=== PATIENT | male | born 1980 | race Caucasian/White ===

== ENCOUNTER 2024-07-18 20:03 | Inpatient (IN) | payer OTHER, SELFPAY ==
[2024-07-18 20:18] VITALS: BP 161/99; PULSE 85; RESP 16; TEMP 37.6; O2SAT 98; BMI 33.1
--- NOTE | 2024-07-18 20:42 | ED_ITS ---
HPI - General Adult General Chief complaint: Extremity Pain/Injury, Upper Stated complaint: Infected Rt hand Time Seen by Provider: 07/18/24 20:06 History of Present Illness HPI narrative: foreign language interpreter used: R hand 4th digit finger puncture by screw last sunday. this sunday swelling started and is getting worse. seen in clinic sunday and started on bactrim BID for 5d. states feels hot and chills today and tylenol at 1400. 44-year-old man presenting to the emergency depart with concern of hand infection. Nine days ago on the job was punctured by a screw in the palmar side PIP joint of the 4th finger. He says it did not go in very far and it was removed. Due to some redness and swelling that started 3 days ago was seen in clinic 2 days ago and looks to have initiated on 5 days of Bactrim. He does say that images were done at that time, x-ray images, which did not show any other injury. He has been taking Bactrim but the hand has swelled very quickly and gotten much worse. He is not measured a fever but has been feeling hot and chilled. Has taken acetaminophen. Has exquisite pain in his hand prefers to keep his finger flexed and does not want to move it. Finger also been draining Related Data Home Medications ?Medication ?Instructions ?Recorded ?Confirmed sulfamethoxazole 800 1 tab PO BID 07/19/24 07/19/24 mg-trimethoprim 160 mg tablet omeprazole 20 mg capsule,delayed 20 mg PO DAILY 07/23/24 07/23/24 release Previous Rx's ?Medication ?Instructions ?Recorded oxycodone 5 mg tablet 5 mg PO Q4-6H PRN Pain #20 tabs 07/20/24 sulfamethoxazole 800 1 tab PO Q12H 7 days #14 tabs 07/20/24 mg-trimethoprim 160 mg tablet (Bactrim DS) Allergies Allergy/AdvReac Type Severity Reaction Status Date / Time No Known Drug Allergies Allergy Verified 07/18/24 20:21 Review of Systems Status of ROS: Reports: 6 or more systems reviewed and unremarkable except as noted in History and below [facility] Social History What is your current living situation?: I presently have a place to live Problems where you live: no known problems In the past 12 months, utilities in danger of being shut off: no In the past 12 mos, have been you worried that your food would run out before you had money to buy more?: never true In the past 12 mos, the food you bought just didn't last and you didn't have money to buy more?: never true Highest level of school completed/degree received: high school graduate Smoking Status: Never smoker How often do you have a drink containing alcohol: 2-4 times a month How often do you have six or more drinks on one occasion: Less than monthly AUDIT-C Alcohol total score: 3 Non-prescribed substance use: denies use Caffeine: Yes How often does anyone, including family, friends and others, physically hurt you : never How often does anyone, including family, friends and others, insult or talk down to you: never How often does anyone, including family, friends and others, threaten you with harm: never How often does anyone, including family, friends and others, scream or curse at you: never Exam Narrative: Exam Narrative: Pleasant. Well-built. Favoring his right arm/hand. There is generalized swelling and erythema and calor over the dorsum of the right hand and a little bit on the 3rd and 5th finger but primarily the 4th finger is diffusely swollen with erythema and calor. Exquisitely tender. Began shaking in apparent pain when I attempt to flex and particular extension also causes a good deal of pain. On the palmar surface at the PIP there is an oval of purulent skin. Looks to have been draining a little bit. Const: Vital Signs, click to edit/add: Vital Signs - 24 hr 07/18/24 20:18 07/18/24 20:59 Temperature 99.7 F H 99.7 F H Pulse Rate [Pulse Oximeter] 85 Respiratory Rate 16 Blood Pressure [Ri ght Upper Arm] 161/99 H Pulse Oximetry 98 Oxygen Delivery Me thod Room Air Documenting provider has reviewed patient's vital signs: yes Course Vital Signs Vital signs: Initial Vital Signs Temperature 99.7 F H 07/18/24 20:18 Temperature Source Temporal Artery Scan 07/18/24 20:18 Pulse Rate 85 07/18/24 20:18 Respiratory Rate 16 07/18/24 20:18 Blood Pressure 161/99 H 07/18/24 20:18 Blood Pressure Mean 119 H 07/18/24 20:18 Blood Pressure Position Sitting 07/18/24 20:18 Pulse Oximetry 98 07/18/24 20:18 Oxygen Delivery Method Room Air 07/18/24 20:18 Vital Signs Temperature 99.7 F H 07/18/24 20:18 Pulse Rate 85 07/18/24 20:18 Respiratory Rate 16 07/18/24 20:18 Blood Pressure 161/99 H 07/18/24 20:18 Pulse Oximetry 98 07/18/24 20:18 Oxygen Delivery Method Room Air 07/18/24 20:18 Temperature 98.1 F 07/20/24 03:55 Pulse Rate 60 07/20/24 07:00 Respiratory Rate 16 07/20/24 07:00 Blood Pressure 132/77 07/20/24 07:00 Pulse Oximetry 99 07/20/24 07:00 Oxygen Delivery Method Room Air 07/20/24 07:00 Oxygen Flow Rate 4 07/19/24 09:15 Medications Administered Medications: Discontinued Medications Generic Name Dose Route Start Last Admin Trade Name Freq PRN Reason Stop Dose Admin Acetaminophen 650 mg 07/18/24 22:38 07/19/24 10:51 Acetaminophen 325 Mg Tablet PO 650 mg Q6H PRN Administration Fentanyl 50 mcg 07/19/24 08:52 07/19/24 09:05 Fentanyl 100 Mcg/2 Ml Inj IVP 50 mcg Q5M PRN Administration Hydromorphone HCl 0.5 mg 07/19/24 08:52 07/19/24 09:13 Hydromorphone 0.5 Mg/0.5 Ml Inj IVP 0.5 mg Q10M PRN Administration Hydromorphone HCl 0.5 mg 07/19/24 09:46 07/19/24 09:52 Hydromorphone 0.5 Mg/0.5 Ml Inj IVP 0.5 mg Q1H PRN Administration Pain Piperacillin Sod/Tazobactam 100 mls @ 200 mls/hr 07/18/24 21:28 07/18/24 23:35 Sod 4.5 gm/ Sodium Chloride IVPB 07/18/24 21:29 Infused ONCE ONE Infusion Piperacillin Sod/Tazobactam 100 mls @ 200 mls/hr 07/19/24 03:30 07/20/24 09:03 Sod 3.375 gm/ Sodium Chloride IVPB 200 mls/hr Q6H ROLANDO Administration Sodium Chloride 1,000 mls @ 125 mls/hr 07/18/24 22:38 07/19/24 20:50 0.9 % Sodium Chloride 1000 Ml IV Infused .Q8H ROLANDO Infusion Vancomycin/PEG/NADA/Lysine/Water 1.75 gm in 350 mls @ 200 mls/hr 07/19/24 00:00 07/19/24 02:04 Vancomycin 1.75 Gm/350 Ml IVPB 07/19/24 01:44 Infused ONCE ONE Infusion Protocol Vancomycin HCl 1,750 mg/ 517.5 mls @ 258.75 mls/hr 07/19/24 12:00 07/20/24 11:01 Sodium Chloride IVPB 258.75 mls/hr Q12H ROLANDO Administration Ibuprofen 800 mg 07/19/24 12:00 07/20/24 09:03 Ibuprofen 400 Mg Tablet PO 800 mg TIDWM ROLANDO Administration Ketorolac Tromethamine 30 mg 07/18/24 20:52 07/18/24 20:59 Ketorolac 30 Mg/Ml Inj IVP 07/18/24 20:53 30 mg ONCE ONE Administration Ondansetron HCl 4 mg 07/19/24 08:51 07/19/24 08:54 Ondansetron 2 Mg/Ml Inj IVP 4 mg ONCE PRN Administration Oxycodone HCl 2.5 - 10 mg 07/19/24 09:38 07/19/24 10:50 Oxycodone 5 Mg Tablet PO 5 mg Q2H PRN Administration Pain Oxycodone/Acetaminophen 2 tab 07/18/24 20:52 07/18/24 21:00 Oxycodone/Apap 5-325 Tablet PO 07/18/24 20:53 2 tab ONCE ONE Administration Sodium Chloride 5 ml 07/18/24 22:38 07/20/24 00:15 Sodium Chloride 0.9 % (Flush) 10 Ml Syringe IVF 5 ml .FLUSH PRN Administration Sodium Chloride 5 ml 07/19/24 09:00 07/20/24 09:04 Sodium Chloride 0.9 % (Flush) 10 Ml Syringe IVF 5 ml BID ROLANDO Administration Medical Decision Making MDM Narrative Medical decision making narrative: At this point would presume cellulitis with flexor tenosynovitis. Will collect some labs place IV. Monitor for other indication of sepsis. Blood culture. Contact Orthopedics. They are in agreement likely a purulent flexor tenosynovitis and recommendation for drainage in the OR in the morning. Initiating Zosyn and vanco. Has received IV fluids. Discussed with hospitalist who is accepting for admission. Lab Data Lab results reviewed: Yes I reviewed the patient's lab results Labs: Lab Results 07/18/24 Range/Units 21:00 WBC 7.72 (4.50-11.00) K/uL RBC 5.28 (4.30-5.90) m/uL Hgb 15.1 (13.5-17.5) gm/dL Hct 44.2 (37.0-53.0) % MCV 84 (80-100) fL MCH 29 (26-34) pg MCHC 34 (32-36) gm/dL RDW Coeff of [place] 12.1 (11.5-15.5) % Plt Count 237 (140-440) K/uL Neut % (Auto) 62.2 (42.0-72.0) % Lymph % (Auto) 25.3 (20-44) % [place] % (Auto) 11.3 H (0.0-11.0) % Eos % (Auto) 1.0 (0.0-7.0) % Baso % (Auto) 0.1 (0.0-3.0) % Neut # (Auto) 4.80 (1.7-7.0) K/uL Lymph # (Auto) 1.95 (0.90-2.90) K/uL [place] # (Auto) 0.90 (0.00-0.90) K/UL Eos # (Auto) 0.08 (0.00-0.50) K/uL Baso # (Auto) 0.01 (0.00-0.30) K/uL Abs Immat Gran (auto) 0.01 (0.00-0.30) K/uL Imm/Tot Granulo (auto) 0.1 % Sodium 138 (135-149) mmol/L Potassium 4.2 (3.6-5.1) mmol/L Chloride 106 (96-114) mmol/L Carbon Dioxide 23 (20-32) mmol/L Anion Gap 9 (7-15) mEq/L BUN 10 (5-24) mg/dL Creatinine 0.8 (0.5-1.5) mg/dL Estimated Creat Clear 125.50 Estimated GFR 112 ml/min Glucose 120 H (60-115) mg/dL Calcium 9.5 (8.4-10.6) mg/dL C-Reactive Protein 7.6 H (0.5-1.0) mg/dL Discharge Plan Discharge Clinical Impression: Suppurative tenosynovitis of flexor tendon, Cellulitis Patient Disposition: Admitted As Observation Condition: Stable Activity Detail: Keep splint clean and dry. No lifting right upper extremity greater than 2 lbs. For pain management: rest, ice, elevation, Tylenol, Ibuprofen and Oxycodone PRN. Patient will follow-up in 1 week for a wound check and again in 2 weeks for suture removal. Phone Orthopedics with any questions or concerns. Continue antibiotics - we will call if you need to change them after we receive results from your culture. Discharge Diet: Regular
[2024-07-18 20:59] VITALS: TEMP 37.6
[2024-07-18] MEDS: KETOROLAC 30 MG/ML inj IVP (20:59)
[2024-07-18] MEDS: OxyCODONE/APAP 5-325 TABLET 2 TAB PO (21:00)
--- OUTSIDE RECORDS SUMMARY | 2024-07-18 21:03 | XMS_ITS | Referral Summary ---
Author Organization [employer] Address [facility] [place] [address] Care Team Providers Care Post Secondary Professional Name Role Phone Clinic, [facility] Primary C are Provider Allergies No known active allergies Medications methylPREDNISol one (MEDROL DOSEPAK) 4 MG tablet Follow package instructions 21 tablet 0 5 Active HYDROcodone-fadi taminophen (NORCO) 5-325 MG per tablet Take 1-2 tablets by mouth every 4 hours as needed for moderate to severe pain 15 tablet 0 5 Active oxyCODONE-aceta minophen (PERCOCET) 5-325 MG per tablet Take 1-2 tablets by mouth every 6 hours as needed for moderate to severe pain or pain 20 tablet 0 5 Active gabapentin (NEURONTIN) 300 MG capsule Take 1 tablet (300 mg) every night for 1-3 days, then 1 tablet twice daily for 1-3 days, then 1 tablet three times daily 30 capsule 0 5 Active Social History Tobacco Use Types Packs/Day Years Used Date Smoking Tobacco: Every Day Cigarettes Alcohol Use Standard Drinks/Week Comments No 0 (1 standard drink = 0.6 oz pur e alcohol) Adolescent Education Answer Date Record ed Getting School Help Needed Not on file 09/21 Sex and Gender Information Value Date Recorded Sex Assigned at Not on file Legal Sex Male 1:33 PM MANAGER CL[employer]ICAL [employer]ARM[employer]Y Gender Identity Not on file Sexual Orientation Not on file Last Filed Vital Signs Vital Sign Reading Time Taken Comments Blood Pressure 138/80 09/21/2023 11:53 PM MANAGER CL[employer]ARM[employer]Y Pulse 73 09/21/2023 11:53 PM [employer]NAGER [employer]ARM[employer]Y Temperature 36.6 C (97.8 F) 09/21/2023 11:53 PM [employer]NAGER [employer]ARM[employer]Y Respiratory Rate 18 09/21/2023 11:53 PM MANAGER [employer]ICAL PHARM[employer]Y Oxygen Saturation 94% 09/21/2023 11:53 PM MANAGER [employer]ICAL PHARM[employer]Y Inhaled Oxygen Concentration - - Weight 108.9 kg (240 lb) 09/21/2023 8:01 PM MANAGER CL[employer]ICAL PHARMACY bed Height 175.3 cm (5' 9) 09/21/2023 8:01 PM MANAGER CL[employer] PHARM[employer]Y Body Mass Index 35.44 09/21/2023 8:01 PM [employer]NAGER [employer]ARM[employer] Plan of Treatment Not on file Procedures Procedure Name Priority Date/Time Associated Diagnosis Comments BASIC METABOLIC PANEL STAT 09/21/2023 8:18 PM MANAGER CLINICAL PHARMACY from Last 3 Months or Most Recently Relevant to Health Maintenance Results * (ABNORMAL) Basic metabolic panel (09/21/2023 8:18 PM MANAGER CLINICAL PHARMACY) [facility] Sodium 138 135 - 145 mmol/L 09/21/2023 8:52 PM MANAGER CLINICAL PHARMACY [facility] Comment:Reference intervals for this test were updated on 05/15/2023 to more accurately reflect our healthy population. There may be differences in the flagging of prior results with similar values performed with this method. Interpretation of those prior results can be made in the context of the updated reference intervals. Potassium 3.6 3.4 - 5.3 mmol/L 09/21/2023 8:52 PM [facility] Chloride 99 98 - 107 mmol/L 09/21/2023 8:52 PM [facility] Carbon Dioxide (CO2) 26 22 - 29 mmol/L 09/21/2023 8:52 PM [facility] Anion Gap 13 7 - 15 mmol/L 09/21/2023 8:52 PM [facility] Urea Nitrogen 14.3 6.0 - 20.0 mg/dL 09/21/2023 8:52 PM [facility] Creatinine 1.11 0.67 - 1.17 mg/dL 09/21/2023 8:52 PM [facility] GFR Estimate 84 >60 mL/min/1. 73m2 09/21/2023 8:52 PM MANAGER [facility] Calcium 8.3(L) 8.6 - 10.0 mg/dL 09/21/2023 8:52 PM MANAGER CL[facility]ARM[facility] Glucose 218(H) 70 - 99 mg/dL 09/21/2023 8:52 PM MANAGER [facility] Blood VENOUS LINE / Unknown Venipuncture / Unknown 09/21/2023 8:18 PM MANAGER [facility]Y 09/21/2023 8:30 PM [facility]NAGER [facility] Myles Alfred MD LAB - BLOOD ORDERABLES Final Result [facility] [address] Lab (1st floor, no room number) [place] [address], [facility] [phone] from Last 3 Months or Most Recently Relevant to Health Maintenance Insurance none (Work) [id number] [address] [id number] [facility] CHOICE [facility] CHO[facility] Care Teams Post Secondary Professional Relationship Specialty Start Date End Date Clinic, [address] [phone] PCP - General 09/22/23
--- OUTSIDE RECORDS SUMMARY | 2024-07-18 21:03 | XMS_ITS | Clinical Summary ---
Author Organization [employer] Address [address] [place], [place] [address]. [place] [address] Phone Care Team Providers Care Automobile Radiator Mechanic Name Role Phone Unavailable Primary Care Provider Unavailabl e Source Comments [employer] is fully rolled out on [employer]. Last update 01/22/09.[employer] Allergies No known active allergies Medications * Be aware that medications may not be up to date as of this document. Always verify current medications with patient. omeprazole (PRILOSEC) 20 mg oral capsuleIndication s:Gastroesophagea l reflux disease, unspecified whether esophagitis present TAKE 1 CAPSULE(20 MG) BY MOUTH DAILY. DO NOT CRUSH 30 capsule 4 01/17/2024 Active Active Problems No known active problems Immunizations Name Administration Dates Next Due COVID-19 MRNA Vaccine (Pfizer/COMIRNATApptio) suspens ion 09/01/2021 COVID-19 Vaccine Monovalent (MODERNA) 12 Years and Older 01/16/2021,12/14/2020 Influenza Vaccine 6 Months through Adult - Prefi lled 09/07/2021 Tetanus Toxoid, Reduced Diph theroid Toxoid Acellular Pertussis 09/19/2023 Family History Medical History Relation Name Comments No Known Problems Brother 1 hermes No Known Problems Brother 2 krystin No Known Problems Brother 3 portia No Known Problems Brother 4 arlette No Known Problems Brother 5 warren Alcohol abuse Father Warren Diabetes Father Warren had amputation of both legs. Kidney Disease Father Warren was on hemodi alysis No Known Problems Maternal Grandfather No Known Problems Maternal Grandmother No Known Problems Mother Lucy No Known Problems Paternal Grandfather No Known Problems Paternal Grandmother Kidney Disease Sister 1 Mirna monge developed this in 30's Hypertension Sister 2 fernando No Known Problems Sister 3 teodoro No Known Problems Sister 4 steve Relation Name Status Comments Brother 1 hermes Alive Brother 2 krystin Alive Brother 3 portia Alive Brother 4 arlette Alive Brother 5 warren Alive Father Warren etoh, renal rosa lure, diabetes Maternal Grandfather Maternal Grandmother Mother Lucy Alive prediabetes Paternal Grandfather Paternal Grandmother Sister 1 Mirna monge Alive on dialysis Sister 2 fernando Alive Sister 3 teodoro Alive Sister 4 steve Alive Social History Tobacco Use Types Packs/Day Years Used Date Smoking Tobacco: Former Cigarettes 2 8 Smokeless Tobacco: Never Comments:will occasionally s moke when drinking Alcohol Use Standard Drinks/Week Comments Yes 0 (1 standard drink = 0.6 oz pur e alcohol) 6 beers every other week PHQ-2 Answer Date Recorded PHQ-2 Subtotal 0 09/07/2021 Sex and Gender Information Value Date Recorded Sex Assigned at Not on file Legal Sex Male 10:38 PM MAILING CLERK Gender Identity Not on file Sexual Orientation Not on file 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 file Not on file Not on file Last Filed Vital Signs Vital Sign Reading Time Taken Comments Blood Pressure 140/93 09/19/2023 9:00 AM MAILING CLERK Pulse 67 09/19/2023 9:00 AM MAILING CLERK Temperature 36 C (96.8 F) 01/12/2022 9:02 AM CDT Respiratory Rate 18 01/12/2022 9:33 AM CDT Oxygen Saturation 96% 01/12/2022 9:33 AM CDT Inhaled Oxygen Concentration - - Weight 103 kg (227 lb) 09/19/2023 8:13 AM MAILING CLERK Height 178.5 cm (5' 10.28) 09/19/2023 8:[address] Body Mass Index 32.32 09/19/2023 8:13 AM MAILING CLERK Plan of Treatment Health Maintenance Due Date Last Done Comments Dental Oral Exam 1980 Dental Prophylaxis 1980 Dental X-Ray: Bitewings 1980 Periodontal Maintenance 1994 Imm: HepB (1 of 3 - 19+ 3-dose series) 1999 HEALTH MAINTENANCE PROTOCOL 09/07/2022 09/07/2021, 0 12/03/2017 Imm: COVID-19 ( season) 2024 09/01/2021, 01/16/2021, 12/14/2020 Imm: Flu (#1) 04/20/2024 09/07/2021 PREVENTATIVE VISIT 09/19/2024 09/19/2023, 0 09/07/2021, 12/03/2017, Additional history exists MEDICATION REFILL PROTOCOL 01/16/2025 01/17/2024, Lipid Screening 09/19/2028 09/19/2023, 08/20, 12/03/2017, Additional history exists Imm: Zoster (1 of 2) 2030 Imm: DTaP/Tdap (2 - Td or Tdap) 09/19/2033 09/19/2023 HIV Screening Completed 09/07/2021, 11/18, 02/24/2008 Imm: HPV Aged Out No longer eligi ble based on patient's age to complete this topic Imm: HepA Aged Out No longer eligi ble based on patient's age to complete this topic Imm: Hib Aged Out No longer eligi ble based on patient's age to complete this topic Imm: Meningitis Aged Out No longer el igible based on patient's age to complete this topic Imm: Pneumonia Peds or At-Risk less than 65 years Aged Out No longer bianca gible based on patient's age to complete this topic Procedures Procedure Name Priority Date/Time Associated Diagnosis Comments PANEL LIPID Routine 09/19/2023 9:22 AM MAILING CLERK Screening cholesterol level PC HIV-1 AG W/HIV-1 & HIV-2 AB Routine 09/07/2021 9:20 AM MAILING CLERK Routine history and physical examination of adult from Last 3 Months or Most Recently Relevant to Health Maintenance Results * (ABNORMAL) PANEL LIPID (09/19/2023 9:22 AM MAILING CLERK) Cholesterol 204(H) <=200 mg/dL [facility] Comment: Interpretive Data <200 Desirable 200-239 Borderline high >=240 High HDL 37(L) >=40 mg/dL [facility] Comment: Interpretive Data Normal > 40 Male > 50 Female Triglyceride 259(H) <=150 mg/dL [facility] Comment: Interpretive Data <150 Normal 150-199 Borderline high 200-499 High >=500 Very high Calc LDL 115(H) <=100 mg/dL [facility] Comment: Interpretive Data <100 Desirable 100-129 Above desirable 130-159 Borderline high 160-189 High >=190 Very high Non-HDL Cholesterol Calculated 167(H) <=130 mg/dL [facility] Comment: Interpretive Data <130 Desirable 130-159 Above desirable 160-189 Borderline high 190-219 High >=220 Very high Blood 09/19/2023 9:22 AM MAILING CLERK 09/19/2023 1:49 PM MAILING CLERK Narrative [facility] - 09/19/2023 2:07 PM MAILING CLERK Fasting: Yes us Mirna Rascon MD LABORATORY Final Result [facility] [address] [id number] * HIV COMBO (09/07/2021 9:20 AM MAILING CLERK) HIV Antigen-Antibody Nonreactive Nonreactive [facility] Comment:Performance characte ristics have not been established with this test on patients less than 2 years of age. Blood 09/07/2021 9:20 AM MAILING CLERK 09/07/2021 1:32 PM MAILING CLERK us Octavia Toledo APRN, CNP LABORATORY Fin al Result [facility] [address] [address] from Last 3 Months or Most Recently Relevant to Health Maintenance Insurance [facility]
--- OUTSIDE RECORDS SUMMARY | 2024-07-18 21:03 | XMS_ITS | Referral Summary ---
Author Organization [facility] Address [address] [place], [place] [address]. [place] [address] Phone Care Team Providers Care Potato Bucker Name Role Phone Unavailable Primary Care Provider Unavailabl e Source Comments [employer] is fully rolled out on [employer]. 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 Not on file Not on file Last Filed Vital Signs Vital Sign Reading Time Taken Comments Blood Pressure 140/93 09/19/2023 9:00 AM NETWORK PRICING CONSULTANT Pulse 67 09/19/2023 9:00 AM NETWORK PRICING CONSULTANT Temperature 36 C (96.8 F) 01/12/2022 9:02 AM CDT Respiratory Rate 18 01/12/2022 9:33 AM CDT Oxygen Saturation 96% 01/12/2022 9:33 AM CDT Inhaled Oxygen Concentration - - Weight 103 kg (227 lb) 09/19/2023 8:13 AM NETWORK PRICING CONSULTANT Height 178.5 cm (5' 10.28) 09/19/2023 8:[address] Body Mass Index 32.32 09/19/2023 8:13 AM NETWORK PRICING CONSULTANT Plan of Treatment Not on file Procedures Procedure Name Priority Date/Time Associated Diagnosis Comments PANEL LIPID Routine 09/19/2023 9:22 AM NETWORK PRICING CONSULTANT Screening cholesterol level PC HIV-1 AG W/HIV-1 & HIV-2 AB Routine 09/07/2021 9:20 AM NETWORK PRICING CONSULTANT Routine history and physical examination of adult from Last 3 Months or Most Recently Relevant to Health Maintenance Results * (ABNORMAL) PANEL LIPID (09/19/2023 9:22 AM NETWORK PRICING CONSULTANT) Cholesterol 204(H) <=200 mg/dL [facility] Comment: Interpretive Data <200 Desirable 200-239 Borderline high >=240 High HDL 37(L) >=40 mg/dL [facility] Comment: Interpretive Data Normal > 40 Male > 50 Female Triglyceride 259(H) <=150 mg/dL [facility] Comment: Interpretive Data <150 Normal 150-199 Borderline high 200-499 High >=500 Very high Calc LDL 115(H) <=100 mg/dL [facility] Comment: Interpretive Data <100 Desirable 100-129 Above desirable 130-159 Borderline high 160-189 High >=190 Very high Non-HDL Cholesterol Calculated 167(H) <=130 mg/dL [facility] Comment: Interpretive Data <130 Desirable 130-159 Above desirable 160-189 Borderline high 190-219 High >=220 Very high Blood 09/19/2023 9:22 AM NETWORK PRICING CONSULTANT 09/19/2023 1:49 PM NETWORK PRICING CONSULTANT Narrative [facility] - 09/19/2023 2:07 PM NETWORK PRICING CONSULTANT Fasting: Yes us Mirna Rascon MD LABORATORY Final Result [facility] [address] [address] * HIV COMBO (09/07/2021 9:20 AM NETWORK PRICING CONSULTANT) HIV Antigen-Antibody Nonreactive Nonreactive [facility] Comment:Performance characte ristics have not been established with this test on patients less than 2 years of age. Blood 09/07/2021 9:20 AM NETWORK PRICING CONSULTANT 09/07/2021 1:32 PM NETWORK PRICING CONSULTANT us Octavia Toledo APRN, PICKER MACHINE OPERATOR LABORATORY Fin al Result Performing Organization Address City/[facility]/ZIP Co de Phone Number [facility] [address] [address] from Last 3 Months or Most Recently Relevant to Health Maintenance Insurance [facility]
--- OUTSIDE RECORDS SUMMARY | 2024-07-18 21:03 | XMS_ITS | Clinical Summary ---
Author Organization [place] Address [facility] [place] [address] Care Team Providers Care Board Machine Set Up Operator Name Role Phone Clinic, [facility] Primary C are Provider Allergies No known [...] on file Legal Sex Male 1:33 PM ANODIZING LINE OPERATOR Gender Identity Not on file Sexual Orientation Not on file Last Filed Vital Signs Vital Sign Reading Time Taken Comments Blood Pressure 138/80 09/21/2023 11:53 PM ANODIZING LINE OPERATOR Pulse 73 09/21/2023 11:53 PM ANODIZING LINE OPERATOR Temperature 36.6 C (97.8 F) 09/21/2023 11:53 PM ANODIZING LINE OPERATOR Respiratory Rate 18 09/21/2023 11:53 PM ANODIZING LINE OPERATOR Oxygen Saturation 94% 09/21/2023 11:53 PM ANODIZING LINE OPERATOR Inhaled Oxygen Concentration - - Weight 108.9 kg (240 lb) 09/21/2023 8:01 PM ANODIZING LINE OPERATOR bed Height 175.3 cm (5' 9) 09/21/2023 8:01 PM ANODIZING LINE OPERATOR Body Mass Index 35.44 09/21/2023 8:01 PM ANODIZING LINE OPERATOR Plan of Treatment Health Maintenance Due Date Last Done Comments ADVANCE CARE PLANNING 1980 ANNUAL REVIEW OF HM ORDERS 1980 YEARLY PREVENTIVE VISIT 1980 Pneumococcal Vaccine: Pediatrics (0 to 5 Years) and At-Risk Patients (6 to 64 Years) (1 of 2 - PCV) 1986 HIV SCREENING 1995 HEPATITIS C SCREENING 1998 HEPATITIS B IMMUNIZATION (1 of 3 - 19+ 3-dose series) 1999 LIPID 2020 PHQ-2 (once per calendar year) 2023 COVID-19 Vaccine ( - 2023-2 5 season) 2024 09/01/2021, 01/16/2021, 12/14/2020 INFLUENZA VACCINE (#1) 2024 09/07/2021 GLUCOSE 09/21/2026 09/21/2023 DTAP/TDAP/TD IMMUNIZATION (2 - Td or Tdap) 09/19/2033 09/19/2023 RSV VACCINE (1 - 1-dose 75+ series) 2055 HPV IMMUNIZATION Aged Out No longer e ligible based on patient's age to complete this topic MENINGITIS IMMUNIZATION Aged Out No l onger eligible based on patient's age to complete this topic RSV MONOCLONAL ANTIBODY Aged Out No l onger eligible based on patient's age to complete this topic Procedures Procedure Name Priority Date/Time Associated Diagnosis Comments BASIC METABOLIC PANEL STAT 09/21/2023 8:18 PM ANODIZING LINE OPERATOR from Last 3 Months or Most Recently Relevant to Health Maintenance Results * (ABNORMAL) Basic metabolic panel (09/21/2023 8:18 PM ANODIZING LINE OPERATOR) Sodium 138 135 - 145 mmol/L 09/21/2023 8:52 PM [facility] Comment:Reference intervals for this test were updated on 05/15/2023 to more accurately reflect our healthy population. There may be differences in the flagging of prior results with similar values performed with this method. Interpretation of those prior results can be made in the context of the updated reference intervals. Potassium 3.6 3.4 - 5.3 mmol/L 09/21/2023 8:52 PM ANODIZING LINE OPERATOR LABORATORY Chloride 99 98 - 107 mmol/L 09/21/2023 8:52 PM ANODIZING LINE OPERATOR LABORATORY Carbon Dioxide (CO2) 26 22 - 29 mmol/L 09/21/2023 8:52 PM [facility] Anion Gap 13 7 - 15 mmol/L 09/21/2023 8:52 PM ANODIZING LINE OPERATOR LABORATORY Urea Nitrogen 14.3 6.0 - 20.0 mg/dL 09/21/2023 8:52 PM ANODIZING LINE OPERATOR LABORATORY Creatinine 1.11 0.67 - 1.17 mg/dL 09/21/2023 8:52 PM ANODIZING LINE OPERATOR LABORATORY GFR Estimate 84 >60 mL/min/1. 73m2 09/21/2023 8:52 PM ANODIZING LINE OPERATOR LABORATORY Calcium 8.3(L) 8.6 - 10.0 mg/dL 09/21/2023 8:52 PM ANODIZING LINE OPERATOR LABORATORY Glucose 218(H) 70 - 99 mg/dL 09/21/2023 8:52 PM [facility] Blood VENOUS LINE / Unknown Venipuncture / Unknown 09/21/2023 8:18 PM ANODIZING LINE OPERATOR 09/21/2023 8:30 PM ANODIZING LINE OPERATOR us Myles Alfred MD LAB - BLOOD ORDERABLES Final Result LABORATORY [facility] Lab [address] [facility] Lab (1st floor, no room number) [place] [address], [facility] [phone] from Last 3 Months or Most Recently Relevant to Health Maintenance Insurance [facility] Care Teams Board Machine Set Up Operator Relationship Specialty Start Date End Date [facility], [address] [address] PCP - General 09/22/23
[2024-07-18 21:05] LABS: Basophils Absolute Auto 0.01 K/uL (0.00-0.30); Basophils Percent Auto 0.1 % (0.0-3.0); Eosinophils Absolute Auto 0.08 K/uL (0.00-0.50); Hematocrit 44.2 % (37.0-53.0); Hemoglobin* 15.1 gm/dL (13.5-17.5); Immature Granulocytes Abs Auto 0.01 K/uL (0.00-0.30); Immature Granulocytes Pct Auto 0.1 %; Lymphocytes Absolute Auto 1.95 K/uL (0.90-2.90); Lymphocytes Percent Auto 25.3 % (20-44); Mean Corpuscular HGB Conc 34 gm/dL (32-36); Mean Corpuscular Hemoglobin 29 pg (26-34); Mean Corpuscular Volume 84 fL (80-100); Monocytes Percent Auto 11.3 % (0.0-11.0); Neutrophils Percent Auto 62.2 % (42.0-72.0); Platelet Count* 237 K/uL (140-440); RDW Coefficient of Variation % 12.1 % (11.5-15.5); Red Blood Count 5.28 m/uL (4.30-5.90); White Blood Count* 7.72 K/uL (4.50-11.00)
[2024-07-18 21:16] LABS: Chloride* 106 mmol/L (96-114)
[2024-07-18 21:17] LABS: Potassium* 4.2 mmol/L (3.6-5.1); Sodium* 138 mmol/L (135-149)
[2024-07-18 21:18] LABS: Slide Review Reflex No
[2024-07-18 21:19] LABS: Creatinine* 0.8 mg/dL (0.5-1.5); Estimated Glomerular Filt Rate 112 ml/min
[2024-07-18 21:20] LABS: Anion Gap 9 mEq/L (7-15); Blood Urea Nitrogen* 10 mg/dL (5-24); Carbon Dioxide* 23 mmol/L (20-32)
[2024-07-18 21:21] LABS: Calcium* 9.5 mg/dL (8.4-10.6); Glucose* 120 mg/dL (60-115)
[2024-07-18 21:23] LABS: C Reactive Protein* 7.6 mg/dL (0.5-1.0)
[2024-07-18] MEDS: PIPERACILLIN/TAZOBACTAM 4.5 GM in 0.9 % SODIUM CHLORIDE Mini-bag 100 ML IVPB (21:37)
--- OUTSIDE RECORDS SUMMARY | 2024-07-18 22:22 | XMS_ITS | Referral Summary ---
Author Organization [place] Address [facility] [place] [address] Care Team Providers Care Eyewear Manufacturing Supervisor Name Role Phone Clinic, [facility] Primary C are Provider Allergies [...] on file Legal Sex Male 1:33 PM BRASS MOLDER HELPER Gender Identity Not on file Sexual Orientation Not on file Last Filed Vital Signs Vital Sign Reading Time Taken Comments Blood Pressure 138/80 09/21/2023 11:53 PM BRASS MOLDER HELPER Pulse 73 09/21/2023 11:53 PM BRASS MOLDER HELPER Temperature 36.6 C (97.8 F) 09/21/2023 11:53 PM BRASS MOLDER HELPER Respiratory Rate 18 09/21/2023 11:53 PM BRASS MOLDER HELPER Oxygen Saturation 94% 09/21/2023 11:53 PM BRASS MOLDER HELPER Inhaled Oxygen Concentration - - Weight 108.9 kg (240 lb) 09/21/2023 8:01 PM BRASS MOLDER HELPER bed Height 175.3 cm (5' 9) 09/21/2023 8:01 PM BRASS MOLDER HELPER Body Mass Index 35.44 09/21/2023 8:01 PM BRASS MOLDER HELPER Plan of Treatment Not on file Procedures Procedure Name Priority Date/Time Associated Diagnosis Comments BASIC METABOLIC PANEL STAT 09/21/2023 8:18 PM BRASS MOLDER HELPER from Last 3 Months or Most Recently Relevant to Health Maintenance Results * (ABNORMAL) Basic metabolic panel (09/21/2023 8:18 PM BRASS MOLDER HELPER) [facility] Sodium 138 135 - 145 mmol/L 09/21/2023 8:52 PM BRASS MOLDER HELPER [facility] Comment:Reference intervals for this test were updated on 05/15/2023 to more accurately reflect our healthy population. There may be differences in the flagging of prior results with similar values performed with this method. Interpretation of those prior results can be made in the context of the updated reference intervals. Potassium 3.6 3.4 - 5.3 mmol/L 09/21/2023 8:52 PM [facility] Chloride 99 98 - 107 mmol/L 09/21/2023 8:52 PM [facility] Carbon Dioxide (CO2) 26 22 - 29 mmol/L 09/21/2023 8:52 PM [facility] Anion Gap 13 7 - 15 mmol/L 09/21/2023 8:52 PM [facility] Urea Nitrogen 14.3 6.0 - 20.0 mg/dL 09/21/2023 8:52 PM [facility] Creatinine 1.11 0.67 - 1.17 mg/dL 09/21/2023 8:52 PM [facility] GFR Estimate 84 >60 mL/min/1. 73m2 09/21/2023 8:52 PM BRASS MOLDER HELPER RH LABORATORY Calcium 8.3(L) 8.6 - 10.0 mg/dL 09/21/2023 8:52 PM BRASS MOLDER HELPER [facility] Glucose 218(H) 70 - 99 mg/dL 09/21/2023 8:52 PM BRASS MOLDER HELPER [facility]AT[facility] Blood VENOUS LINE / Unknown Venipuncture / Unknown 09/21/2023 8:18 PM BRASS MOLDER HELPER 09/21/2023 8:30 PM BRASS MOLDER HELPER Myles Alfred MD LAB - BLOOD ORDERABLES Final Result [facility] LABORATORY [facility] Lab [address] Lab (1st floor, no room number) [place] [address], [facility] [place] [phone] from Last 3 Months or Most Recently Relevant to Health Maintenance Insurance none (Work) [id number] [id number] [facility] Care Teams Eyewear Manufacturing Supervisor Relationship Specialty Start Date End Date Clinic, [address] [phone] PCP - General 09/22/23
--- OUTSIDE RECORDS SUMMARY | 2024-07-18 22:22 | XMS_ITS | Clinical Summary ---
Author Organization [facility] Address [address] [place], [place] [address]. [place] [address] Phone Care Team Providers Care Packaging Tech Name Role Phone Unavailable Primary Care Provider Unavailabl e Source Comments [employer] is fully rolled out on [employer]. 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 Not on file Not on file Last Filed Vital Signs Vital Sign Reading Time Taken Comments Blood Pressure 140/93 09/19/2023 9:00 AM DIRECTOR TELEVISION NEWS Pulse 67 09/19/2023 9:00 AM DIRECTOR TELEVISION NEWS Temperature 36 C (96.8 F) 01/12/2022 9:02 AM CDT Respiratory Rate 18 01/12/2022 9:33 AM CDT Oxygen Saturation 96% 01/12/2022 9:33 AM CDT Inhaled Oxygen Concentration - - Weight 103 kg (227 lb) 09/19/2023 8:13 AM DIRECTOR TELEVISION NEWS Height 178.5 cm (5' 10.28) 09/19/2023 8:[address] Body Mass Index 32.32 09/19/2023 8:13 AM DIRECTOR TELEVISION NEWS Plan of Treatment Health Maintenance Due Date [...] Comments PANEL LIPID Routine 09/19/2023 9:22 AM DIRECTOR TELEVISION NEWS Screening cholesterol level PC HIV-1 AG W/HIV-1 & HIV-2 AB Routine 09/07/2021 9:20 AM DIRECTOR TELEVISION NEWS Routine history and physical examination of adult from Last 3 Months or Most Recently Relevant to Health Maintenance Results * (ABNORMAL) PANEL LIPID (09/19/2023 9:22 AM DIRECTOR TELEVISION NEWS) Cholesterol 204(H) <=200 mg/dL [facility] Comment: Interpretive Data <200 Desirable 200-239 Borderline high >=240 High HDL 37(L) >=40 mg/dL [facility] Comment: Interpretive Data Normal > 40 Male > 50 Female Triglyceride 259(H) <=150 mg/dL [facility] Comment: Interpretive Data <150 Normal 150-199 Borderline high 200-499 High >=500 Very high Calc LDL 115(H) <=100 mg/dL [facility] Comment: Interpretive Data <100 Desirable 100-129 Above desirable 130-159 Borderline high 160-189 High >=190 Very high Non-HDL Cholesterol Calculated 167(H) <=130 mg/dL [facility] Comment: Interpretive Data <130 Desirable 130-159 Above desirable 160-189 Borderline high 190-219 High >=220 Very high Blood 09/19/2023 9:22 AM DIRECTOR TELEVISION NEWS 09/19/2023 1:49 PM DIRECTOR TELEVISION NEWS Narrative [facility] - 09/19/2023 2:07 PM DIRECTOR TELEVISION NEWS Fasting: Yes us Mirna Rascon MD LABORATORY Final Result [facility] [address] [address] * HIV COMBO (09/07/2021 9:20 AM DIRECTOR TELEVISION NEWS) HIV Antigen-Antibody Nonreactive Nonreactive [facility] Comment:Performance characte ristics have not been established with this test on patients less than 2 years of age. Blood 09/07/2021 9:20 AM DIRECTOR TELEVISION NEWS 09/07/2021 1:32 PM DIRECTOR TELEVISION NEWS us Octavia Toledo APRN, CNP LABORATORY Fin al Result [facility] [address] [address] from Last 3 Months or Most Recently Relevant to Health Maintenance Insurance [facility]
--- OUTSIDE RECORDS SUMMARY | 2024-07-18 22:22 | XMS_ITS | Referral Summary ---
Author Organization [facility] Address [address] [place], [place] [address]. [place] [address] Phone Care Team Providers Care Wellness Program Coordinator Name Role Phone Unavailable Primary Care Provider Unavailabl e Source Comments [employer] is fully rolled out on [employer]. 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 Not on file Not on file Last Filed Vital Signs Vital Sign Reading Time Taken Comments Blood Pressure 140/93 09/19/2023 9:00 AM PRODUCTION HONING MACHINE OPERATOR Pulse 67 09/19/2023 9:00 AM PRODUCTION HONING MACHINE OPERATOR Temperature 36 C (96.8 F) 01/12/2022 9:02 AM CDT Respiratory Rate 18 01/12/2022 9:33 AM CDT Oxygen Saturation 96% 01/12/2022 9:33 AM CDT Inhaled Oxygen Concentration - - Weight 103 kg (227 lb) 09/19/2023 8:13 AM PRODUCTION HONING MACHINE OPERATOR Height 178.5 cm (5' 10.28) 09/19/2023 8:[address] Body Mass Index 32.32 09/19/2023 8:13 AM PRODUCTION HONING MACHINE OPERATOR Plan of Treatment Not on file Procedures Procedure Name Priority Date/Time Associated Diagnosis Comments PANEL LIPID Routine 09/19/2023 9:22 AM PRODUCTION HONING MACHINE OPERATOR Screening cholesterol level PC HIV-1 AG W/HIV-1 & HIV-2 AB Routine 09/07/2021 9:20 AM PRODUCTION HONING MACHINE OPERATOR Routine history and physical examination of adult from Last 3 Months or Most Recently Relevant to Health Maintenance Results * (ABNORMAL) PANEL LIPID (09/19/2023 9:22 AM PRODUCTION HONING MACHINE OPERATOR) Cholesterol 204(H) <=200 mg/dL [facility] Comment: Interpretive Data <200 Desirable 200-239 Borderline high >=240 High HDL 37(L) >=40 mg/dL [facility] Comment: Interpretive Data Normal > 40 Male > 50 Female Triglyceride 259(H) <=150 mg/dL [facility] Comment: Interpretive Data <150 Normal 150-199 Borderline high 200-499 High >=500 Very high Calc LDL 115(H) <=100 mg/dL [facility] Comment: Interpretive Data <100 Desirable 100-129 Above desirable 130-159 Borderline high 160-189 High >=190 Very high Non-HDL Cholesterol Calculated 167(H) <=130 mg/dL [facility] Comment: Interpretive Data <130 Desirable 130-159 Above desirable 160-189 Borderline high 190-219 High >=220 Very high Blood 09/19/2023 9:22 AM PRODUCTION HONING MACHINE OPERATOR 09/19/2023 1:49 PM PRODUCTION HONING MACHINE OPERATOR Narrative [facility] - 09/19/2023 2:07 PM PRODUCTION HONING MACHINE OPERATOR Fasting: Yes us Mirna Rascon MD LABORATORY Final Result [facility] [address] [address] * HIV COMBO (09/07/2021 9:20 AM PRODUCTION HONING MACHINE OPERATOR) HIV Antigen-Antibody Nonreactive Nonreactive [facility] Comment:Performance characte ristics have not been established with this test on patients less than 2 years of age. Blood 09/07/2021 9:20 AM PRODUCTION HONING MACHINE OPERATOR 09/07/2021 1:32 PM PRODUCTION HONING MACHINE OPERATOR us Octavia Toledo APRN, PATTERN CUTTER LABORATORY Fin al Result Performing Organization Address City/[facility]/ZIP Co de Phone Number [facility] [address] [address] from Last 3 Months or Most Recently Relevant to Health Maintenance Insurance [facility]
--- OUTSIDE RECORDS SUMMARY | 2024-07-18 22:22 | XMS_ITS | Clinical Summary ---
Author Organization [place] Address [facility] [place] [address] Care Team Providers Care Off Premise Service Representative Name Role Phone Clinic, [facility] Primary C are Provider Allergies No known [...] on file Legal Sex Male 1:33 PM CHIEF CONTROLLER CENTER Gender Identity Not on file Sexual Orientation Not on file Last Filed Vital Signs Vital Sign Reading Time Taken Comments Blood Pressure 138/80 09/21/2023 11:53 PM CHIEF CONTROLLER CENTER Pulse 73 09/21/2023 11:53 PM CHIEF CONTROLLER CENTER Temperature 36.6 C (97.8 F) 09/21/2023 11:53 PM CHIEF CONTROLLER CENTER Respiratory Rate 18 09/21/2023 11:53 PM CHIEF CONTROLLER CENTER Oxygen Saturation 94% 09/21/2023 11:53 PM CHIEF CONTROLLER CENTER Inhaled Oxygen Concentration - - Weight 108.9 kg (240 lb) 09/21/2023 8:01 PM CHIEF CONTROLLER CENTER bed Height 175.3 cm (5' 9) 09/21/2023 8:01 PM CHIEF CONTROLLER CENTER Body Mass Index 35.44 09/21/2023 8:01 PM CHIEF CONTROLLER CENTER Plan of Treatment Health Maintenance Due Date [...] BASIC METABOLIC PANEL STAT 09/21/2023 8:18 PM CHIEF CONTROLLER CENTER from Last 3 Months or Most Recently Relevant to Health Maintenance Results * (ABNORMAL) Basic metabolic panel (09/21/2023 8:18 PM CHIEF CONTROLLER CENTER) Sodium 138 135 - 145 mmol/L 09/21/2023 8:[address] [facility] Comment:Reference intervals for this test were updated on 05/15/2023 to more accurately reflect our healthy population. There may be differences in the flagging of prior results with similar values performed with this method. Interpretation of those prior results can be made in the context of the updated reference intervals. Potassium 3.6 3.4 - 5.3 mmol/L 09/21/2023 8:52 PM [facility] Chloride 99 98 - 107 mmol/L 09/21/2023 8:52 PM [facility] Carbon Dioxide (CO2) 26 22 - 29 mmol/L 09/21/2023 8:[address] [facility] Anion Gap 13 7 - 15 mmol/L 09/21/2023 8:52 PM [facility] Urea Nitrogen 14.3 6.0 - 20.0 mg/dL 09/21/2023 8:52 PM [facility] Creatinine 1.11 0.67 - 1.17 mg/dL 09/21/2023 8:52 PM [facility] CONTROLL[facility] C[facility] LAB[facility]ORY GFR Estimate 84 >60 mL/min/1. 73m2 09/21/2023 8:52 PM [facility] C[facility] LAB[facility]ORY Calcium 8.3(L) 8.6 - 10.0 mg/dL 09/21/2023 8:52 PM [facility] LAB[facility] Glucose 218(H) 70 - 99 mg/dL 09/21/2023 8:[address] [facility] Blood VENOUS LINE / Unknown Venipuncture / Unknown 09/21/2023 8:18 PM CHIEF CONTROLLER CENTER 09/21/2023 8:30 PM CHIEF CONTROLLER CENTER us Myles Alfred MD LAB - BLOOD ORDERABLES Final Result LABORATORY [facility] Acute Care Lab [address] [facility] Lab (1st floor, no room number) [place] [address], [facility] [phone] from Last 3 Months or Most Recently Relevant to Health Maintenance Insurance [facility] Care Teams Off Premise Service Representative Relationship Specialty Start Date End Date [facility], [address] [address] PCP - General 09/22/23
--- NOTE | 2024-07-18 22:28 | P.IMHP_ITS ---
Hospitalist- H&P: HPI History of Present Illness Date Seen: 07/18/24 Chief complaint: Infected Rt hand Narrative: Jimbo Irwin is a 44 year old man presents to the emergency department for assessment of right hand infection. I believe it was on 07/09/2024, when patient was working and sustained an injury to his right hand 4th digit palmar surface PIP joint. He sustained a puncture wound at that time. States this screw do not going very far and was easily removed. Did not think much of it until 3 days ago noticed swelling, redness, discomfort. Presented to the clinic and after assessment, including x-ray, was started on a course of oral Bactrim DS 1 tab p.o. b.i.d.. Despite initiation of this the hand has become increasingly swollen, more red, more painful. Additionally there is some small amount of purulent drainage coming from the puncture site. Over the last 24-48 hours has had a sense of being warm with diaphoresis and chills. Has not taking his temperature. Did take acetaminophen. Because this has not helped he presents today for further assessment. Review of Systems Status of ROS: Reports: 6 or more systems reviewed and unremarkable except as noted in History and below Narrative: Generally very healthy. Does not take any medications for any chronic illnesses. Denies concerns with chest, back, shoulder, or arm heaviness, pressure, tightness, or pain. Denies syncope or near-syncope. Denies palpitations. Denies cough. Denies dyspnea at rest, paroxysmal nocturnal dyspnea, or orthopnea. Able to carry on extremely heavy physical activities with no concerns. 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 Denies bowel or bladder concerns. Denies myalgias or arthralgias. No weight gain or weight loss. No neurologic concerns. Denies history of elevated blood sugars. Denies the use of any tobacco products. Denies use of any street or recreational drugs. Occasionally drinks beer. In the summer he might drink as much as 1 beer per day. In colder weather he does not drink daily, maybe once a week he might have 1 or 2 beers. Denies alcohol withdrawals. Denies concern about over consumption of alcohol. [facility] Social History Smoking Status: Never smoker Non-prescribed substance use: denies use Meds Home Medications and Allergies Home Medications ?Medication ?Instructions ?Recorded ?Confirmed ?Type No Known Home Medications 07/18/24 07/18/24 History Allergies Allergy/AdvReac Type Severity Reaction Status Date / Time No Known Drug Allergies Allergy Verified 07/18/24 20:21 Exam Narrative: Exam Narrative: I examine him in the emergency department. His tolowa dee-ni' language is Slovenian. He speaks and understands New Zealander fairly well. I speak with him in [place] Zealander and I also speak with him through the seismic interpreter in Slovenian. Appears comfortable but obviously has antalgia with right hand. Right hand is red, swollen, with a touch of purulent drainage from the palmar surface of the right 4th digit PIP joint. Fingers are swollen and semi flexed. Can extend the fingers but with discomfort. Redness extends all the way up to the elbow. Redness on palmar and dorsal aspect of hand. Vision and hearing are normal. External auditory canals are clear. Midline nasal septum. Dentition in fair repair. Moist buccal mucosa. Conjugate gaze. No icterus. Midline trachea. Supple neck. No head neck lymphadenopathy. Lungs are clear to auscultation. Heart tones with regular rhythm, normal S1-S2. No murmur, gallop, or rub. Abdomen with active bowel sounds, soft, nontender. Lower extremities without edema. Skin intact aside from what I described involving the right hand. No focal motor neurologic deficits. Const: Vital Signs, click to edit/add: Vital Signs - 24 hr 07/18/24 20:18 07/18/24 20:59 Temperature 99.7 F H 99.7 F H Pulse Rate [Pulse Oximeter] 85 Respiratory Rate 16 Blood Pressure [Ri ght Upper Arm] 161/99 H Pulse Oximetry 98 Oxygen Delivery Me thod Room Air Hospitalist - H&P: Result Labs Labs: Short CBC 07/18/24 Range/Units 21:00 WBC 7.72 (4.50-11.00) K/uL Hgb 15.1 (13.5-17.5) gm/dL Hct 44.2 (37.0-53.0) % Plt Count 237 (140-440) K/uL BMP 07/18/24 21:00 Sodium 138 Potassium 4.2 Chloride 106 Carbon Dioxide 23 BUN 10 Creatinine 0.8 Glucose 120 H Calcium 9.5 Assessment and Plan Assessment and plan (1) Suppurative tenosynovitis of flexor tendon: Problem comment: - likely from puncture wound that occurred on 07/09/2024, around 1 in the afternoon, while at work - failed outpatient oral antibiotic with Bactrim DS 1 tab p.o. b.i.d. which was started 2 days ago - Dr. Erickson spoke with [facility] orthopedic surgeon on-call. I believe he spoke with David Nolasco's team. They will assess the patient in the morning with plan to bring the patient to the OR for incision, drainage, irrigation. They will obtain intraoperative cultures. - initiate vancomycin 1700 mg IV once then 1500 mg IV q.12 hours with Pharmacy to consult and assist with dosing. Will also initiate piperacillin with tazobactam 3.375 g IV q.6 hours. Status: Acute (2) Cellulitis: Problem comment: - see note in suppurative tenosynovitis of flexor tendon problem Status: Acute Plan 1. I reviewed my impression, plan, and recommendations with patient and . Answered their questions their satisfaction. They are agreeable. 2. Given the severity of his condition, I am admitting him to inpatient status with anticipation that he will require IV antibiotics be on tomorrow after he has his surgical incision, drainage, and irrigation. Total Time Spent Total Time Spent: 60 minutes
[2024-07-18 22:33] VITALS: BP 158/89; PULSE 79; RESP 16; TEMP 37.6; O2SAT 98
[2024-07-18 22:34] VITALS: BP 158/89; PULSE 79; RESP 16; TEMP 37.6
[2024-07-18 22:53] VITALS: BP 140/97; PULSE 73; RESP 18; TEMP 37.2; O2SAT 96; BMI 31.8
--- NOTE | 2024-07-18 23:38 | PC.NURSE ---
Pt arrived to floor at 2225. Alert oriented and vitally stable. Pt is Cymro speaking, developing machine operator used and tolerated well. Pt has edema in the right hand, fourth finger has a puncture wound, no drainage. Pain rated 0/10, though sates pain prior to admission. Pt is independent in room and tolerates well. Pt NPO. Pt at bedside.
[2024-07-19] VITALS (17 sets, daily range): BP systolic 107–133; BP diastolic 58–93; PULSE 52–73; RESP 10–18; TEMP 36.6–36.9; O2SAT 92–98
[2024-07-19] MEDS: VANCOMYCIN 1.75 GM/350 ML 1.75 GM/350 ML PIGGYBACK IVPB (00:19)
[2024-07-19] MEDS: 0.9 % SODIUM CHLORIDE 1000 ml 1,000 ML 125 ML IV (00:19)
[2024-07-19] MEDS: PIPERACILLIN/TAZOBACTAM 3.375 GM in 0.9 % SODIUM CHLORIDE Mini-bag 100 ML IVPB ×4 (03:17→21:35)
[2024-07-19] MEDS: ACETAMINOPHEN 325 MG TABLET 650 MG PO ×2 (03:25→10:51)
--- NOTE | 2024-07-19 06:38 | PC.NURSE ---
END OF SHIFT NOTE: PT PLEASANT AND COOPERATIVE WITH CARES. A&O. DENIES CP, SOB, N/V. AMBULATES INDEPENDENTLY. DECLINED RESEARCH ASSOCIATE QUALITY CONTROL QC DURING SHIFT; RESEARCH ASSOCIATE QUALITY CONTROL QC INFORMATION AND WAIVER SIGNED AND PLACED IN FRONT OF PT'S CHART. PT TO GO BACK TO OR FOR I&D TO RIGHT HAND 4TH DIGIT THIS MORNING SERVED RESEARCH ASSOCIATE QUALITY CONTROL QC WITH ANESTHESIOLOGIST AND SURGEON PRE OPERATIVELY. NPO SINCE MIDNIGHT. IV TO LEFT FOREARM IN PLACE WITH NS@[email or web address]/HR. AT BEDSIDE PROVIDING COMFORT.
[2024-07-19 06:42] LABS: Basophils Absolute Auto 0.02 K/uL (0.00-0.30); Basophils Percent Auto 0.3 % (0.0-3.0); Eosinophils Absolute Auto 0.18 K/uL (0.00-0.50); Eosinophils Percent Auto 3.1 % (0.0-7.0); Hematocrit 40.5 % (37.0-53.0); Hemoglobin* 13.7 gm/dL (13.5-17.5); Immature Granulocytes Abs Auto 0.01 K/uL (0.00-0.30); Immature Granulocytes Pct Auto 0.2 %; Mean Corpuscular HGB Conc 34 gm/dL (32-36); Mean Corpuscular Hemoglobin 29 pg (26-34); Mean Corpuscular Volume 85 fL (80-100); Monocytes Percent Auto 12.1 % (0.0-11.0); Neutrophils Absolute Auto 3.09 K/uL (1.7-7.0); Neutrophils Percent Auto 53.3 % (42.0-72.0); Platelet Count* 223 K/uL (140-440); RDW Coefficient of Variation % 12.1 % (11.5-15.5); Red Blood Count 4.75 m/uL (4.30-5.90)
[2024-07-19 06:54] LABS: C Reactive Protein* 6.6 mg/dL (0.5-1.0); Slide Review Reflex No
--- NOTE | 2024-07-19 07:19 | PM.ORCN ---
History of Present Illness HPI Date Seen: 07/19/24 Chief complaint: Infected Rt hand Narrative: Jimbo is a pleasant 44 year old man presents to the emergency department for assessment of right hand infection. Reportedly on 07/09/2024 he sustained an injury to his right hand ring finger palmar aspect PIP joint region; it was a puncture wound from a screw. He notes the screw did not go deep and was easily removed. He did not think much of it until 3 days ago when he noticed swelling, redness, and discomfort. He presented to the clinic and after assessment, including x-ray, was started on a course of oral Bactrim DS 1 tab p.o. b.i.d.. However, the hand continued to worsen. Reportedly, recently there is a small amount of purulent drainage coming from the puncture site. Over the last 24-48 hours has had a sense of being warm with diaphoresis and chills. Has not taking his temperature. Did take acetaminophen. Because this has not helped he presented to [facility] ED 07/18/2024 for further assessment. [facility] Social History What is your current living situation?: I presently have a place to live Problems where you live: no known problems In the past 12 months, utilities in danger of being shut off: no In the past 12 mos, have been you worried that your food would run out before you had money to buy more?: never true In the past 12 mos, the food you bought just didn't last and you didn't have money to buy more?: never true Highest level of school completed/degree received: high school graduate Smoking Status: Never smoker How often do you have a drink containing alcohol: 2-4 times a month How often do you have six or more drinks on one occasion: Less than monthly AUDIT-C Alcohol total score: 3 Non-prescribed substance use: denies use Caffeine: Yes How often does anyone, including family, friends and others, physically hurt you: never How often does anyone, including family, friends and others, insult or talk down to you: never How often does anyone, including family, friends and others, threaten you with harm: never How often does anyone, including family, friends and others, scream or curse at you: never Meds Home Medications and Allergies Home Medications ?Medication ?Instructions ?Recorded ?Confirmed ?Type No Known Home Medications 07/18/24 07/18/24 History Allergies Allergy/AdvReac Type Severity Reaction Status Date / Time No Known Drug Allergies Allergy Verified 07/18/24 20:21 Ortho Exam Narrative Exam Narrative: He is alert and oriented x3. Skin his is in the room with him. He is in no acute distress. Nonlabored breathing. He is not diaphoretic. No appreciable systemic signs. No rigors. Right hand exam shows generalized swelling about the hand and fingers. Right ring finger is the most swollen. There is a whitish skin colored region over the volar aspect of the ring finger PIP joint. This looks more blister-like rather than purulence, and I see no active drainage. He is able to actively flex the digit with discomfort. Passive extension also produces discomfort. The fingers in a resting flexed posture. The hand is slightly erythematous on the dorsal aspect, but no erythema tracking into the palm. He is tender to palpation over the flexor aspect of the ring finger in particular. Not as much the hand or other digits. Const Vital Signs, click to edit/add: Vital Signs - 24 hr 07/18/24 20:18 07/18/24 20:59 07/18/24 22:33 Temperature 99.7 F H 99.7 F H 99.7 F H Pulse Rate [Pulse Oximeter] 85 79 Respiratory Rate 16 16 Blood Pressure [Left Arm] Blood Pressure [Right Upper Arm] 161/99 H 158/89 H Pulse Oximetry 98 98 Oxygen Delivery Method Room Air Room Air 07/18/24 22:34 07/18/24 22:53 07/18/24 22:53 Temperature 99.7 F H 98.9 F Pulse Rate [Pulse Oximeter] 79 73 Respiratory Rate 16 18 18 Blood Pressure [Left Arm] 140/97 H Blood Pressure [Right Upper Arm] 158/89 H Pulse Oximetry 96 96 Oxygen Delivery Method Room Air Room Air 07/19/24 00:25 07/19/24 00:25 07/19/24 00:25 Temperature 97.9 F Pulse Rate [Pulse Oximeter] 72 72 Respiratory Rate 18 18 18 Blood Pressure [Left Arm] 120/58 L Blood Pressure [Right Upper Arm] Pulse Oximetry 96 96 Oxygen Delivery Method Room Air Room Air 07/19/24 03:20 Temperature 98.0 F Pulse Rate [Pulse Oximeter] 61 Respiratory Rate 16 Blood Pressure [Left Arm] 116/69 Blood Pressure [Right Upper Arm] Pulse Oximetry 98 Oxygen Delivery Method Room Air Results Labs Labs: Laboratory Results - last 48 hr 07/18/24 07/19/24 21:00 05:59 WBC 7.72 5.80 RBC 5.28 4.75 Hgb 15.1 13.7 Hct 44.2 40.5 MCV 84 85 MCH 29 29 MCHC 34 34 RDW Coeff of [place] 12.1 12.1 Plt Count 237 223 Neut % (Auto) 62.2 53.3 Lymph % (Auto) 25.3 31.0 [place] % (Auto) 11.3 H 12.1 H Eos % (Auto) 1.0 3.1 Baso % (Auto) 0.1 0.3 Neut # (Auto) 4.80 3.09 Lymph # (Auto) 1.95 1.80 [place] # (Auto) 0.90 0.70 Eos # (Auto) 0.08 0.18 Baso # (Auto) 0.01 0.02 Abs Immat Gran (auto) 0.01 0.01 Imm/Tot Granulo (auto) 0.1 0.2 Sodium 138 Potassium 4.2 Chloride 106 Carbon Dioxide 23 Anion Gap 9 BUN 10 Creatinine 0.8 Estimated Creat Clear 125.50 Estimated GFR 112 Glucose 120 H Calcium 9.5 C-Reactive Protein 7.6 H 6.6 H Diagnostic results Additional Comments: Reportedly x-rays were obtained at an outside clinic within the last few days that revealed no acute fractures or avulsions. No reported metallic foreign bodies. I do not have these images to review personally. Assessment and Plan Assessment and plan (1) Suppurative tenosynovitis of flexor tendon: Problem comment: - likely from puncture wound that occurred on 07/09/2024, around 1 in the afternoon, while at work - failed outpatient oral antibiotic with Bactrim DS 1 tab p.o. b.i.d. which was started 2 days ago - Dr. Erickson spoke with [facility] orthopedic surgeon on-call. I believe he spoke with David Nolasco's team. They will assess the patient in the morning with plan to bring the patient to the OR for incision, drainage, irrigation. They will obtain intraoperative cultures. - initiate vancomycin 1700 mg IV once then 1500 mg IV q.12 hours with Pharmacy to consult and assist with dosing. Will also initiate piperacillin with tazobactam 3.375 g IV q.6 hours. Status: Acute Total time spent: Total time spent is greater than 50% in coordination of care (as documented) at patient's floor/unit and/or counseling patient: (2) Cellulitis: Problem comment: - see note in suppurative tenosynovitis of flexor tendon problem Status: Acute Total time spent: Total time spent is greater than 50% in coordination of care (as documented) at patient's floor/unit and/or counseling patient: Plan Indeed there is the high index of suspicion for right ring finger pyogenic flexor tenosynovitis. At this time it appears to be confined to the ring finger. However, given the amount of swelling, tenderness, and the positive Knavel signs, I do think it prudent to take the patient to the operating room to incise and drain this flexor tendon sheath to the right ring finger. We will perform a thorough irrigation and debridement as well as indicated. We discussed the risks, benefits, and alternatives in detail with the help of Dr. Hobson, who was at the patient's bedside. Patient states understanding. He and his asked good questions and I believe they were answered to their satisfaction. Following the surgery, I would anticipate splinting the right hand. Encourage IV antibiotics until cultures might return with greater sensitivities, at which time I would expect oral antibiotics to be appropriate. Encouraged elevation, and even oral NSAIDs so long as he is on antibiotics. We will monitor his wound as well. I was able to coordinate care with the hospitalist team and the anesthesia team today.
--- NOTE | 2024-07-19 08:24 | P.NB_ITS ---
Nerve Block Nerve Block Time Seen by Provider: 07:35 Date Seen: 07/19/24 Type of block requested by surgeon for post-operative analgesia: axillary Side: right Time out performed: Yes Verification of patient name: Yes Verification of date of : Yes Site marking: site marked Name of person performing procedure: Kevin Lashell Continuous monitoring Was continuous monitoring of O2 sat, B/P, phototypesetting equipment monitor, recorded every 15 minutes?: Yes Procedure Checklist: sterile prep, needles and gloves Ultrasound guided. Images saved: Yes Medications given in 5ml increments after negative aspiration: Ropivicaine %: 0.5 mL: 20 Needle gauge: 20 Decadron (mg): 10 Precedex (mcg): 25 Patient tolerated procedure well: Yes Additional comments: Injected in 5mL increments after negative aspiration Block Charges Block Charge (with Pro Fee): Axillary Nerve Use of Ultrasound Machine for Block: Yes- US Guidance/pain block
--- NOTE | 2024-07-19 08:29 | PM.ORPRC ---
Procedure Note Date of procedure: 07/19/24 Procedure: PREOPERATIVE DIAGNOSES: 1. Right ring finger pyogenic flexor tenosynovitis POSTOPERATIVE DIAGNOSES: 1. Right ring finger pyogenic flexor tenosynovitis NAME OF OPERATION: 1. Right ring finger open incision and drainage of pyogenic flexor tenosynovitis 2. Right ring finger excisional debridement of skin subcutaneous tissue and deep fascia. SURGEON: Que Nolasco MD SUPERVISOR PREP: Uma Keith PA-C - Of note, an medical laboratory assistant was critical for this case to aide in patient positioning, limb manipulation, tissue retraction, closure, and splinting. ANESTHESIA: Regional block plus MAC IMPLANTS: None. TOURNIQUET: 20 minutes at 225 torr-formed tourniquet. INDICATIONS: The patient is a pleasant, 44-year-old male who sustained a puncture wound to the right ring finger flexor crease overlying the PIP joint approximately 07/09/2024. He thought nothing of this initially. However, a few days later he started noticing some swelling, redness, and pain. He present to a local clinic. Was provided oral Bactrim. Despite this, things progressed. He presented [facility] 07/18/2024. There is concern for pyogenic flexor tenosynovitis of the ring finger. Orthopedics was consulted. Decision was made to take the patient to the operating room after he had been without food and drink for appropriate time. FINDINGS: Pyogenic flexor tenosynovitis right ring finger. This did not seem to track proximally or distally very far but was rather quite localized overlying the PIP joint region. PROCEDURE: Following a thorough discussion of risks, benefits, and alternatives, consent was obtained and the operative extremity was marked. The patient was brought to the operating room and placed supine on the operating table. Induction of anesthesia was achieved. Appropriate time out was performed identifying proper patient, site and procedure. No antibiotics were administered as the patient has been on vancomycin and Zosyn in the preoperative time with his last dose just a few hours prior. The right upper extremity was prepped and draped in the appropriate sterile fashion using Betadine prep. The limb was exsanguinated and the tourniquet inflated. A Clinton type incision was made from the D IP joint crease to the MCP joint crease. Sharp incision through the skin and blunt dissection to the deep fascia allowed us to elevate full-thickness skin flap from the flexor tendon sheath. Crossing digital neurovascular structures were protected. Purulence was immediately encountered (in fact noted to be draining through the small puncture wound on the volar aspect of the PIP joint wound). Culture was obtained of this purulence. Thorough irrigation normal saline was then performed. Debridement was performed with a combination of rongeur, Ray-Ramone, and curette. This included excisional debridement of skin, subcutaneous tissue, and some deep fascia along the flexor tendon sheath. The sheath was entered with a Kempner elevator and irrigation allowed to track along the Kempner to allow excellent irrigation in this region both distally and proximally. 2 L of normal saline was utilized for irrigation for this pyogenic flexor tenosynovitis. Closure performed with 4-0 nylon in interrupted fashion. Dressings were applied along with a volar splint. The patient was awoken from anesthesia and transferred to PACU in stable condition. PLAN: 1. Elevate operative extremity. 2. Ice, acetominphen or ibuprofen PRN. 3. Oxycodone for pain as needed. 4. Follow up PA visit 1 week for wound check. 5. Continue IV antibiotics here in the hospital. Transition to oral antibiotics when practical and/or when sensitivities return
[2024-07-19] MEDS: ONDANSETRON 2 MG/ML inj 4 MG IVP (08:54)
--- NOTE | 2024-07-19 08:54 | PM.IMPN1 ---
Progress Note: A&P Assessment and plan (1) Suppurative tenosynovitis of flexor tendon: Problem details: - likely 2/2 puncture wound that occurred on 07/09/2024, around 1300 while working - failed outpatient oral antibiotic with Bactrim DS 1 tab BID, initiated 07/16/24 - IV Vancomycin + Piperacillin/Tazobactam (07/18) - TDAP UTD, given 05/2024 - s/p I&D with Dr. Nolasco of Orthopedic Surgery on 07/19, cultures obtained at that time Status: Acute Plan - continue IV abx - home 1-2 days, pending clinical course and culture results - updated at bedside, questions answered Subjective Date Seen: 07/19/24 Interval history: Jimbo was admitted to the hospital last night for R 4th finger tenosynovitis, initiated on Vancomycin and Zosyn. This morning, he had an I&D with Dr. Nolasco of Orthopedic Surgery, intraoperative cultures collected and pending. Labs and VS reassuring, blood culture NGTD. Patient and have no concerns for hospitalist team. Exam Narrative: Exam Narrative: GEN: Alert and oriented, laying comfortably in bed, nontoxic HEENT: EOMIs bilaterally, no scleral icterus CV: RRR, No concerning murmurs R: LCTA bilaterally without concerning wheezing Ext: Left upper extremity is splinted and wrapped with an Eduardo bandage. Exposed fingers have appropriate range of motion and normal capillary refill Skin: No concerning skin lesions or rashes on exposed skin Neuro: No focal deficits Psych: Appropriate Const: Vital Signs, click to edit/add: Vital Signs - 24 hr 07/18/24 20:18 07/18/24 20:59 07/18/24 22:33 Temperature 99.7 F H 99.7 F H 99.7 F H Pulse Rate Pulse Rate [Pulse Oximeter] 85 79 Respiratory Rate 16 16 Blood Pressure Blood Pressure [Le ft Arm] Blood Pressure [Ri ght Upper Arm] 161/99 H 158/89 H Pulse Oximetry 98 98 Oxygen Delivery Me thod Room Air Room Air Oxygen Flow Rate 07/18/24 22:34 07/18/24 22:53 07/18/24 22:53 Temperature 99.7 F H 98.9 F Pulse Rate Pulse Rate [Pulse Oximeter] 79 73 Respiratory Rate 16 18 18 Blood Pressure Blood Pressure [Le ft Arm] 140/97 H Blood Pressure [Ri ght Upper Arm] 158/89 H Pulse Oximetry 96 96 Oxygen Delivery Me thod Room Air Room Air Oxygen Flow Rate 07/19/24 00:25 07/19/24 00:25 07/19/24 00:25 Temperature 97.9 F Pulse Rate Pulse Rate [Pulse Oximeter] 72 72 Respiratory Rate 18 18 18 Blood Pressure Blood Pressure [Le ft Arm] 120/58 L Blood Pressure [Ri ght Upper Arm] Pulse Oximetry 96 96 Oxygen Delivery Me thod Room Air Room Air Oxygen Flow Rate 07/19/24 03:20 07/19/24 08:38 Temperature 98.0 F 97.8 F Pulse Rate 66 Pulse Rate [Pulse Oximeter] 61 Respiratory Rate 16 12 Blood Pressure 121/79 Blood Pressure [Le ft Arm] 116/69 Blood Pressure [Ri ght Upper Arm] Pulse Oximetry 98 92 Oxygen Delivery Me thod Room Air Nasal Cannula Oxygen Flow Rate 2 Labs Labs: Laboratory Results - last 24 hr 07/18/24 07/19/24 21:00 05:59 WBC 7.72 5.80 RBC 5.28 4.75 Hgb 15.1 13.7 Hct 44.2 40.5 MCV 84 85 MCH 29 29 MCHC 34 34 RDW Coeff of [place] 12.1 12.1 Plt Count 237 223 Neut % (Auto) 62.2 53.3 Lymph % (Auto) 25.3 31.0 [place] % (Auto) 11.3 H 12.1 H Eos % (Auto) 1.0 3.1 Baso % (Auto) 0.1 0.3 Neut # (Auto) 4.80 3.09 Lymph # (Auto) 1.95 1.80 [place] # (Auto) 0.90 0.70 Eos # (Auto) 0.08 0.18 Baso # (Auto) 0.01 0.02 Abs Immat Gran (auto) 0.01 0.01 Imm/Tot Granulo (auto) 0.1 0.2 Sodium 138 Potassium 4.2 Chloride 106 Carbon Dioxide 23 Anion Gap 9 BUN 10 Creatinine 0.8 Estimated Creat Clear 125.50 Estimated GFR 112 Glucose 120 H Calcium 9.5 C-Reactive Protein 7.6 H 6.6 H
[2024-07-19] MEDS: fentaNYL 100 MCG/2 ML inj 50 MCG IVP ×2 (09:00→09:05)
[2024-07-19] MEDS: HYDROmorphone 0.5 mg/0.5 ml inj IVP ×2 (09:13→09:52)
--- NOTE | 2024-07-19 09:21 | P.ANES_ITS ---
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
--- NOTE | 2024-07-19 09:34 | SUR.PHASEI ---
patient met discharge criteria per anesthesia
[2024-07-19] MEDS: OXYCODONE 5 MG TABLET PO (10:50)
--- NOTE | 2024-07-19 11:23 | REH.OT ---
Pt not ready for OT eval on 07/19, just returned from surgery. Plan to eval on 07/20 for ADLs prior to DC, defer to OP OT/ortho for any splinting/brace needs.
[2024-07-19] MEDS: IBUPROFEN 400 MG TABLET 800 MG PO ×2 (13:33→21:36)
--- NOTE | 2024-07-19 20:21 | PC.NURSE ---
Nursing Care Hours: [id number] Pt prepped and ready for OR upon beginning of shift. Trim Technician used prior to going, no questions or concerns had. Upon arrival back from PACU, pt drowsy but oriented. Pain rated 6/10, and pain treated per eMAR. VS Q15min for one hour, remained stable. Pain rated 6/10 again so oxycodone 5mg and acetaminophen given at 1050. Around 1215, publicity writer checked pt. Pt sleeping, RR 10, HR 55. Pt easily awoke and when publicity writer reassessed pain, pt stated pain increased to 7/10. Unishear Operator explained that more pain medication at this time is not safe d/t RR and HR but offered an ice pack but pt declined and said ill be ok. Continuous pulse monitoring in place for short term. Pt used bathroom and had visitors and ate and drank. IV saline locked and and monitoring stopped. Pt remained comfortable rest of shift. CMS intact.
[2024-07-19] MEDS: SODIUM CHLORIDE 0.9 % (FLUSH) 10 ML SYRINGE 5 ML IVF (21:36)
[2024-07-20] MEDS: SODIUM CHLORIDE 0.9 % (FLUSH) 10 ML SYRINGE 5 ML IVF ×2 (00:15→09:04)
[2024-07-20 00:20] VITALS: BP 120/70; PULSE 62; RESP 16; TEMP 36.8; O2SAT 98
[2024-07-20 03:55] VITALS: BP 131/78; PULSE 64; RESP 16; TEMP 36.7; O2SAT 96
[2024-07-20] MEDS: PIPERACILLIN/TAZOBACTAM 3.375 GM in 0.9 % SODIUM CHLORIDE Mini-bag 100 ML IVPB ×2 (03:55→09:03)
--- NOTE | 2024-07-20 05:28 | PC.NURSE ---
end of shift note: pt pleasant. a&o. no c/o pain throughout night. up independently within room. at bedside providing support. uneventful shift.
[2024-07-20 06:40] LABS: Eosinophils Absolute Auto 0.01 K/uL (0.00-0.50); Eosinophils Percent Auto 0.1 % (0.0-7.0); Hematocrit 38.8 % (37.0-53.0); Hemoglobin* 13.1 gm/dL (13.5-17.5); Immature Granulocytes Abs Auto 0.02 K/uL (0.00-0.30); Immature Granulocytes Pct Auto 0.2 %; Lymphocytes Percent Auto 10.9 % (20-44); Mean Corpuscular HGB Conc 34 gm/dL (32-36); Mean Corpuscular Hemoglobin 29 pg (26-34); Mean Corpuscular Volume 85 fL (80-100); Monocytes Percent Auto 5.8 % (0.0-11.0); Platelet Count* 260 K/uL (140-440); RDW Coefficient of Variation % 11.8 % (11.5-15.5); Red Blood Count 4.56 m/uL (4.30-5.90)
[2024-07-20 06:49] LABS: Chloride* 108 mmol/L (96-114); Potassium* 4.3 mmol/L (3.6-5.1); Sodium* 136 mmol/L (135-149)
[2024-07-20 06:50] LABS: Slide Review Reflex No
[2024-07-20 06:51] LABS: Creatinine* 0.8 mg/dL (0.5-1.5); Estimated Glomerular Filt Rate 112 ml/min
[2024-07-20 06:52] LABS: Anion Gap 5 mEq/L (7-15); Blood Urea Nitrogen* 15 mg/dL (5-24); Carbon Dioxide* 23 mmol/L (20-32)
[2024-07-20 06:53] LABS: Calcium* 8.8 mg/dL (8.4-10.6); Glucose* 170 mg/dL (60-115)
[2024-07-20 06:55] LABS: C Reactive Protein* 4.2 mg/dL (0.5-1.0)
[2024-07-20 07:00] VITALS: BP 132/77; PULSE 60; RESP 16; O2SAT 99
[2024-07-20] MEDS: IBUPROFEN 400 MG TABLET 800 MG PO (09:03)
--- NOTE | 2024-07-20 09:07 | PM.ORPN ---
Subjective Subjective Time Seen by Provider: 08:30 Date Seen: 07/20/24 Principal diagnosis: Day 1 s/p right ring finger open I&D of pyogenic flexor tenosynovitis Interval history: Jimbo is resting comfortably in his bed. Accompanied by his /girlfriend. Doing well. Patient reports his right ring finger pain is significantly improved. Denies numbness/tingling distally. Pain is well managed with rest, elevation and Oxycodone PRN. Denies postop chest pain, SOB, fever, chills. Splint intact without drainage. No acute concerns. Culture results pending. Ortho Exam Narrative Exam Narrative: Patient is alert and oriented x3. No acute distress. Converses with nonlabored breathing. Right hand/wrist splint clean, dry and intact. Splint was not removed during this visit. CMS intact with 2+ radial pulse. Sensation confirmed distally. Const Vital Signs, click to edit/add: Vital Signs - 24 hr 07/19/24 09:10 07/19/24 09:15 07/19/24 09:20 Temperature 97.8 F 97.8 F 98.2 F Pulse Rate 58 L 59 L 60 Pulse Rate [Pulse Oximeter] Respiratory Rate 12 12 12 Blood Pressure 120/84 110/80 119/79 Blood Pressure [Left Arm] Blood Pressure [Right Arm] Pulse Oximetry 98 97 93 Oxygen Delivery Method Nasal Cannula Nasal Cannula Room Air Oxygen Flow Rate 4 4 07/19/24 09:27 07/19/24 10:05 07/19/24 11:00 Temperature Pulse Rate 54 L Pulse Rate [Pulse Oximeter] Respiratory Rate 16 14 Blood Pressure 117/75 Blood Pressure [Left Arm] Blood Pressure [Right Arm] Pulse Oximetry 92 95 Oxygen Delivery Method Room Air Room Air Oxygen Flow Rate 07/19/24 12:14 07/19/24 15:00 07/19/24 15:00 Temperature Pulse Rate 55 L Pulse Rate [Pulse Oximeter] 67 Respiratory Rate 10 L 16 16 Blood Pressure 107/63 Blood Pressure [Left Arm] Blood Pressure [Right Arm] Pulse Oximetry 93 94 Oxygen Delivery Method Room Air Room Air Oxygen Flow Rate 07/19/24 15:00 07/19/24 21:40 07/19/24 21:40 Temperature 98.4 F 98.4 F Pulse Rate Pulse Rate [Pulse Oximeter] 67 73 73 Respiratory Rate 16 18 18 Blood Pressure Blood Pressure [Left Arm] 132/75 Blood Pressure [Right Arm] 133/93 H Pulse Oximetry 94 97 Oxygen Delivery Method Room Air Room Air Oxygen Flow Rate 07/19/24 21:40 07/20/24 00:20 07/20/24 03:55 Temperature 98.2 F 98.1 F Pulse Rate Pulse Rate [Pulse Oximeter] 62 64 Respiratory Rate 18 16 16 Blood Pressure Blood Pressure [Left Arm] 120/70 131/78 Blood Pressure [Right Arm] Pulse Oximetry 97 98 96 Oxygen Delivery Method Room Air Room Air Room Air Oxygen Flow Rate 07/20/24 07:00 07/20/24 07:00 07/20/24 07:00 Temperature Pulse Rate Pulse Rate [Pulse Oximeter] 60 60 Respiratory Rate 16 16 16 Blood Pressure Blood Pressure [Left Arm] 132/77 Blood Pressure [Right Arm] Pulse Oximetry 99 99 Oxygen Delivery Method Room Air Room Air Oxygen Flow Rate Assessment and Plan Assessment and plan (1) Suppurative tenosynovitis of flexor tendon: Problem details: Day 1 s/p: - right ring finger open incision and drainage of pyogenic flexor tenosynovitis AND - right ring finger excisional debridement of skin subcutaneous tissue and deep fascia. DOS: 07/19/24; Dr. Nolasco. Culture results pending. Patient will likely be discharged today on broad spectrum oral antibiotics, likely Bactrim. Upon completion and review of culture results, we may recommend an antibiotic change. Keep splint clean and dry. For pain management, I recommend rest, ice, elevation, Tylenol, Ibuprofen and Oxycodone PRN. Patient will follow-up in 1 week for a wound check and again in 2 weeks for suture removal. All questions were answered. Phone Orthopedics with any questions or concerns. Status: Acute
--- NOTE | 2024-07-20 13:33 | PM.EN ---
Chart Event Note Chart Event Note: Patient remained medically stable, discharged by Orthopedic Surgery team. Will followup with culture results.
--- NOTE | 2024-07-20 15:25 | PC.NURSE ---
Nursing Care Hours: [id number] Pt this shift calm and cooperative with cares, independent in the room. No c/o pain. VSS. CMS intact. Completed IV ABX infusions this shift and then IV dc'd. Discharge paperwork went over with pt and using beadworker. Work release form filled out and signed. pt requested a sling for arm support. Lg sling fitted. Pt ambulated off the unit with spouse in stable condition.
--- OUTSIDE RECORDS SUMMARY | 2024-07-25 08:05 | XMS_ITS | Clinical Summary ---
Author Organization [place] Address [facility]ly [facility] [place] [address] Care Team Providers Care Cinder Crew Worker Name Role Phone Clinic, [facility] Primary C are Provider Allergies [...] on file Legal Sex Male 1:33 PM SENIOR OUTSIDE SALES REPRESENTATIVE Gender Identity Not on file Sexual Orientation Not on file Last Filed Vital Signs Vital Sign Reading Time Taken Comments Blood Pressure 138/80 09/21/2023 11:53 PM SENIOR OUTSIDE SALES REPRESENTATIVE Pulse 73 09/21/2023 11:53 PM SENIOR OUTSIDE SALES REPRESENTATIVE Temperature 36.6 C (97.8 F) 09/21/2023 11:53 PM SENIOR OUTSIDE SALES REPRESENTATIVE Respiratory Rate 18 09/21/2023 11:53 PM SENIOR OUTSIDE SALES REPRESENTATIVE Oxygen Saturation 94% 09/21/2023 11:53 PM SENIOR OUTSIDE SALES REPRESENTATIVE Inhaled Oxygen Concentration - - Weight 108.9 kg (240 lb) 09/21/2023 8:01 PM SENIOR OUTSIDE SALES REPRESENTATIVE bed Height 175.3 cm (5' 9) 09/21/2023 8:01 PM SENIOR OUTSIDE SALES REPRESENTATIVE Body Mass Index 35.44 09/21/2023 8:01 PM SENIOR OUTSIDE SALES REPRESENTATIVE Plan of Treatment Health Maintenance Due Date [...] (once per calendar year) 2023 COVID-19 Vaccine (4 - 2023-2 5 season) 2024 09/01/2021, 01/16/2021, [...] Procedure Name Priority Date/Time Associated Diagnosis Comments MICROBIOLOGY ISOLATE REFERRAL Routine 07/19/2024 8:07 AM SENIOR OUTSIDE SALES REPRESENTATIVE BASIC METABOLIC PANEL STAT 09/21/2023 8:18 PM SENIOR OUTSIDE SALES REPRESENTATIVE from Last 3 Months or Most Recently Relevant to Health Maintenance Results * (ABNORMAL) Microbiology Isolate Referral (07/19/2024 8:07 AM SENIOR OUTSIDE SALES REPRESENTATIVE) Culture Streptococcus pyogenes (Group A Streptococcus)(A ) CLEMENTE 07/23/2024 9:33 AM SENIOR OUTSIDE SALES REPRESENTATIVE [facility] Comment:Organism identified by client. Swab STRUCTURE OF RIGHT HAND / Unknown Non-blood Collection / Unknown 07/19/2024 8:07 AM SENIOR OUTSIDE SALES REPRESENTATIVE 07/21/2024 10:55 AM SENIOR OUTSIDE SALES REPRESENTATIVE Narrative Organism Antibiotic Method Susceptibility Streptococcus pyogenes (Group A Streptococcus) Penicillin CLEMENTE <=0.03 ug/mL: Susceptible Streptococcus pyogenes (Group A Streptococcus) Clindamycin CLEMENTE Resistant Comment:This isolate is presumed to be clindamycin resistant based on detection of inducible clindamycin resistance. Erythromycin and clindamycin are resistant; therefore, they are not recommended for use. Streptococcus pyogenes (Group A Streptococcus) Erythromycin CLEMENTE >0.5 ug/mL: Resistant Streptococcus pyogenes (Group A Streptococcus) Cefotaxime CLEMENTE <=0.25 ug/mL: Susceptible Streptococcus pyogenes (Group A Streptococcus) Ceftriaxone CLEMENTE <=0.25 ug/mL: Susceptible Streptococcus pyogenes (Group A Streptococcus) Vancomycin CLEMENTE 0.25 ug/mL: Susceptible Comment: Additional susceptibilities in progress.07/22 Que Nolasco PA-C LAB - MICRO GENERAL ORDERABLES Final Result [facility] Inf. Diseases Diag. Lab [address] [facility] [place] [address] * (ABNORMAL) Basic metabolic panel (09/21/2023 8:18 PM SENIOR OUTSIDE SALES REPRESENTATIVE) Sodium 138 135 - 145 mmol/L 09/21/2023 8:52 PM SENIOR OUTSIDE SALES REPRESENTATIVE [facility] Comment:Reference intervals for this test were updated on 05/15/2023 to more accurately reflect our healthy population. There may be differences in the flagging of prior results with similar values performed with this method. Interpretation of those prior results can be made in the context of the updated reference intervals. Potassium 3.6 3.4 - 5.3 mmol/L 09/21/2023 8:52 PM SENIOR OUTSIDE SALES REPRESENTATIVE LABORATORY Chloride 99 98 - 107 mmol/L 09/21/2023 8:52 PM SENIOR OUTSIDE SALES REPRESENTATIVE LABORATORY Carbon Dioxide (CO2) 26 22 - 29 mmol/L 09/21/2023 8:52 PM SENIOR OUTSIDE SALES REPRESENTATIVE LABORATORY Anion Gap 13 7 - 15 mmol/L 09/21/2023 8:52 PM SENIOR OUTSIDE SALES REPRESENTATIVE LABORATORY Urea Nitrogen 14.3 6.0 - 20.0 mg/dL 09/21/2023 8:52 PM SENIOR OUTSIDE SALES REPRESENTATIVE LABORATORY Creatinine 1.11 0.67 - 1.17 mg/dL 09/21/2023 8:52 PM SENIOR OUTSIDE SALES REPRESENTATIVE LABORATORY GFR Estimate 84 >60 mL/min/1. 73m2 09/21/2023 8:52 PM SENIOR OUTSIDE SALES REPRESENTATIVE LABORATORY Calcium 8.3(L) 8.6 - 10.0 mg/dL 09/21/2023 8:52 PM [facility] Glucose 218(H) 70 - 99 mg/dL 09/21/2023 8:52 PM [facility] Blood VENOUS LINE / Unknown Venipuncture / Unknown 09/21/2023 8:18 PM SENIOR OUTSIDE SALES REPRESENTATIVE 09/21/2023 8:30 PM SENIOR OUTSIDE SALES REPRESENTATIVE Myles Alfred MD LAB - BLOOD ORDERABLES Final Result LABORATORY [facility] Acute Care Lab [address] Lab (1st floor, no room number) [place] [address], [facility] [phone] from Last 3 Months or Most Recently Relevant to Health Maintenance Insurance [facility] Care Teams Cinder Crew Worker Relationship Specialty Start Date End Date Clinic, [address] [address] PCP - General 09/22/23
--- OUTSIDE RECORDS SUMMARY | 2024-07-25 08:05 | XMS_ITS | Referral Summary ---
Author Organization [place] Address [facility] [place] [address] Care Team Providers Care Cnc Operator Name Role Phone Clinic, [facility] Primary C are Provider Allergies [...] on file Legal Sex Male 1:33 PM TRAIN DISPATCHER Gender Identity Not on file Sexual Orientation Not on file Last Filed Vital Signs Vital Sign Reading Time Taken Comments Blood Pressure 138/80 09/21/2023 11:53 PM TRAIN DISPATCHER Pulse 73 09/21/2023 11:53 PM TRAIN DISPATCHER Temperature 36.6 C (97.8 F) 09/21/2023 11:53 PM TRAIN DISPATCHER Respiratory Rate 18 09/21/2023 11:53 PM TRAIN DISPATCHER Oxygen Saturation 94% 09/21/2023 11:53 PM TRAIN DISPATCHER Inhaled Oxygen Concentration - - Weight 108.9 kg (240 lb) 09/21/2023 8:01 PM TRAIN DISPATCHER bed Height 175.3 cm (5' 9) 09/21/2023 8:01 PM TRAIN DISPATCHER Body Mass Index 35.44 09/21/2023 8:01 PM TRAIN DISPATCHER Plan of Treatment Not on file Procedures Procedure Name Priority Date/Time Associated Diagnosis Comments MICROBIOLOGY ISOLATE REFERRAL Routine 07/19/2024 8:07 AM TRAIN DISPATCHER BASIC METABOLIC PANEL STAT 09/21/2023 8:18 PM TRAIN DISPATCHER from Last 3 Months or Most Recently Relevant to Health Maintenance Results * (ABNORMAL) Microbiology Isolate Referral (07/19/2024 8:07 AM TRAIN DISPATCHER) Culture Streptococcus pyogenes (Group A Streptococcus)(A ) CLEMENTE 07/23/2024 9:33 AM TRAIN DISPATCHER [facility] Comment:Organism identified by client. Swab STRUCTURE OF RIGHT HAND / Unknown Non-blood Collection / Unknown 07/19/2024 8:07 AM TRAIN DISPATCHER 07/21/2024 10:55 AM TRAIN DISPATCHER Narrative Organism Antibiotic Method Susceptibility Streptococcus pyogenes [...] GENERAL ORDERABLES Final Result [facility] Inf. Diseases Diag. Lab [address] [facility], [address] [place] [address], [facility] * (ABNORMAL) Basic metabolic panel (09/21/2023 8:18 PM TRAIN DISPATCHER) [facility] Sodium 138 135 - 145 mmol/L 09/21/2023 8:52 PM TRAIN DISPATCHER [facility] Comment:Reference intervals for this test were updated on 05/15/2023 to more accurately reflect our healthy population. There may be differences in the flagging of prior results with similar values performed with this method. Interpretation of those prior results can be made in the context of the updated reference intervals. Potassium 3.6 3.4 - 5.3 mmol/L 09/21/2023 8:52 PM TRAIN DISPATCHER LABORATORY Chloride 99 98 - 107 mmol/L 09/21/2023 8:52 PM TRAIN DISPATCHER LABORATORY Carbon Dioxide (CO2) 26 22 - 29 mmol/L 09/21/2023 8:52 PM TRAIN DISPATCHER LABORATORY Anion Gap 13 7 - 15 mmol/L 09/21/2023 8:52 PM TRAIN DISPATCHER LABORATORY Urea Nitrogen 14.3 6.0 - 20.0 mg/dL 09/21/2023 8:52 PM TRAIN DISPATCHER LABORATORY Creatinine 1.11 0.67 - 1.17 mg/dL 09/21/2023 8:52 PM [facility] GFR Estimate 84 >60 mL/min/1. 73m2 09/21/2023 8:52 PM TRAIN DISPATCHER LABORATORY Calcium 8.3(L) 8.6 - 10.0 mg/dL 09/21/2023 8:52 PM [facility] Glucose 218(H) 70 - 99 mg/dL 09/21/2023 8:52 PM [facility] Blood VENOUS LINE / Unknown Venipuncture / Unknown 09/21/2023 8:18 PM TRAIN DISPATCHER 09/21/2023 8:30 PM TRAIN DISPATCHER Myles Alfred MD LAB - BLOOD ORDERABLES Final Result [facility] Acute Care Lab [address] [facility] Lab (1st floor, no room number) [place] [address], [facility] [phone] from Last 3 Months or Most Recently Relevant to Health Maintenance Insurance none (Work) [id number] [id number] [facility] CHO[facility] Care Teams Cnc Operator Relationship Specialty Start Date End Date [facility], [address] [address] PCP - General 09/22/23
--- OUTSIDE RECORDS SUMMARY | 2024-07-25 08:05 | XMS_ITS | Clinical Summary ---
Author Organization [facility] Address [address] [place], [place] [address]. [place] [address] Phone Care Team Providers Care Global Mobility Specialist Name Role Phone Unavailable Primary Care Provider Unavailabl e Source Comments Fl[employer]red is fully rolled out on [employer]. 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 file Not on file Not on file Last Filed Vital Signs Vital Sign Reading Time Taken Comments Blood Pressure 140/93 09/19/2023 9:00 AM HOT ROLL INSPECTOR Pulse 67 09/19/2023 9:00 AM HOT ROLL INSPECTOR Temperature 36 C (96.8 F) 01/12/2022 9:02 AM CDT Respiratory Rate 18 01/12/2022 9:33 AM CDT Oxygen Saturation 96% 01/12/2022 9:33 AM CDT Inhaled Oxygen Concentration - - Weight 103 kg (227 lb) 09/19/2023 8:13 AM HOT ROLL INSPECTOR Height 178.5 cm (5' 10.28) 09/19/2023 8:[address] Body Mass Index 32.32 09/19/2023 8:13 AM HOT ROLL INSPECTOR Plan of Treatment Health Maintenance Due Date [...] Comments PANEL LIPID Routine 09/19/2023 9:22 AM HOT ROLL INSPECTOR Screening cholesterol level PC HIV-1 AG W/HIV-1 & HIV-2 AB Routine 09/07/2021 9:20 AM HOT ROLL INSPECTOR Routine history and physical examination of adult from Last 3 Months or Most Recently Relevant to Health Maintenance Results * (ABNORMAL) PANEL LIPID (09/19/2023 9:22 AM HOT ROLL INSPECTOR) Cholesterol 204(H) <=200 mg/dL [facility] Comment: Interpretive Data <200 Desirable 200-239 Borderline high >=240 High HDL 37(L) >=40 mg/dL [facility] Comment: Interpretive Data Normal > 40 Male > 50 Female Triglyceride 259(H) <=150 mg/dL [facility] Comment: Interpretive Data <150 Normal 150-199 Borderline high 200-499 High >=500 Very high Calc LDL 115(H) <=100 mg/dL [facility] Comment: Interpretive Data <100 Desirable 100-129 Above desirable 130-159 Borderline high 160-189 High >=190 Very high Non-HDL Cholesterol Calculated 167(H) <=130 mg/dL [facility] Comment: Interpretive Data <130 Desirable 130-159 Above desirable 160-189 Borderline high 190-219 High >=220 Very high Blood 09/19/2023 9:22 AM HOT ROLL INSPECTOR 09/19/2023 1:49 PM HOT ROLL INSPECTOR Narrative [facility] - 09/19/2023 2:07 PM HOT ROLL INSPECTOR Fasting: Yes us Mirna Rascon MD LABORATORY Final Result [facility] [address] [address] * HIV COMBO (09/07/2021 9:20 AM HOT ROLL INSPECTOR) HIV Antigen-Antibody Nonreactive Nonreactive [facility] Comment:Performance characte ristics have not been established with this test on patients less than 2 years of age. Blood 09/07/2021 9:20 AM HOT ROLL INSPECTOR 09/07/2021 1:32 PM HOT ROLL INSPECTOR us Octavia Toledo APRN, CNP LABORATORY Fin al Result [facility] [address] [address] from Last 3 Months or Most Recently Relevant to Health Maintenance Insurance [facility]
--- OUTSIDE RECORDS SUMMARY | 2024-07-25 08:05 | XMS_ITS | Referral Summary ---
Author Organization [facility] Address [address] [place], [place] [address] [address] Phone Care Team Providers Care Security Services Manager Name Role Phone Unavailable Primary Care Provider Unavailabl e Source Comments [employer] is fully rolled out on [employer]. 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 Not on file Not on file Last Filed Vital Signs Vital Sign Reading Time Taken Comments Blood Pressure 140/93 09/19/2023 9:00 AM QA SPECIALIST Pulse 67 09/19/2023 9:00 AM QA SPECIALIST Temperature 36 C (96.8 F) 01/12/2022 9:02 AM CDT Respiratory Rate 18 01/12/2022 9:33 AM CDT Oxygen Saturation 96% 01/12/2022 9:33 AM CDT Inhaled Oxygen Concentration - - Weight 103 kg (227 lb) 09/19/2023 8:13 AM QA SPECIALIST Height 178.5 cm (5' 10.28) 09/19/2023 8:[address] Body Mass Index 32.32 09/19/2023 8:13 AM QA SPECIALIST Plan of Treatment Not on file Procedures Procedure Name Priority Date/Time Associated Diagnosis Comments PANEL LIPID Routine 09/19/2023 9:22 AM QA SPECIALIST Screening cholesterol level PC HIV-1 AG W/HIV-1 & HIV-2 AB Routine 09/07/2021 9:20 AM QA SPECIALIST Routine history and physical examination of adult from Last 3 Months or Most Recently Relevant to Health Maintenance Results * (ABNORMAL) PANEL LIPID (09/19/2023 9:22 AM QA SPECIALIST) Cholesterol 204(H) <=200 mg/dL [facility] Comment: Interpretive Data <200 Desirable 200-239 Borderline high >=240 High HDL 37(L) >=40 mg/dL [facility] Comment: Interpretive Data Normal > 40 Male > 50 Female Triglyceride 259(H) <=150 mg/dL [facility] Comment: Interpretive Data <150 Normal 150-199 Borderline high 200-499 High >=500 Very high Calc LDL 115(H) <=100 mg/dL [facility] Comment: Interpretive Data <100 Desirable 100-129 Above desirable 130-159 Borderline high 160-189 High >=190 Very high Non-HDL Cholesterol Calculated 167(H) <=130 mg/dL [facility] Comment: Interpretive Data <130 Desirable 130-159 Above desirable 160-189 Borderline high 190-219 High >=220 Very high Blood 09/19/2023 9:22 AM QA SPECIALIST 09/19/2023 1:49 PM QA SPECIALIST Narrative [facility] - 09/19/2023 2:07 PM QA SPECIALIST Fasting: Yes us Mirna Rascon MD LABORATORY Final Result [facility] [address] [address] * HIV COMBO (09/07/2021 9:20 AM QA SPECIALIST) HIV Antigen-Antibody Nonreactive Nonreactive [facility] Comment:Performance characte ristics have not been established with this test on patients less than 2 years of age. Blood 09/07/2021 9:20 AM QA SPECIALIST 09/07/2021 1:32 PM QA SPECIALIST us Octavia Toledo APRN, FISH HATCHERY SUPERINTENDENT LABORATORY Fin al Result Performing Organization Address City/[facility]/ZIP Co de Phone Number [facility] [address] [address] from Last 3 Months or Most Recently Relevant to Health Maintenance Insurance [facility] [place] [address]
== END 2024-07-20 13:51 | disposition home or self-care (01) | DRG 501 ==
LOC: ED 21:40 → OR 22:21 → MEDSURG 22:21 → OR 07-19 07:07 → MEDSURG 07-19 07:08
PROVIDERS: Family Medicine; Internal Medicine; Admitting Provider Orthopaedic Surgery Sports Medicine; Emergency Provider Family Medicine; Visit Provider Orthopaedic Surgery Sports Medicine
PROC: 0L970ZX Drainage of Right Hand Tendon, Open Approach, Diagnostic (ICD-10-PCS; principal; 2024-07-19 07:30)
DX: M65.141 Other infective (teno)synovitis, right hand (principal); L03.113 Cellulitis of right upper limb; S61.234A Puncture wound without foreign body of right ring finger without damage to nail, initial encounter; G89.18 Other acute postprocedural pain
CPT/HCPCS: 01810; 36415; 64417; 76942; 80048; 85025; 86140; 87040; 87070; 87075; 87186; 87205; 97165; 99140; 99284; 99285; A4580; A9270; J1100; J1171; J1885; J2250; J2405; J2543; J2704; J3010; J3370; J3372; J3490; J7030

== ENCOUNTER 2024-11-18 15:45 | Outpatient (RCR) | payer OTHER, SELFPAY ==
--- NOTE | 2024-08-25 09:31 | OT.OPOE ---
OT Outpatient Ortho Eval OT Outpatient Ortho Eval* Start: 08/25/24 07:40 Freq: Status: Active Protocol: Document 08/25/24 07:40 ROSALBA (Rec: 08/25/24 09:23 [id number] [id number]) E-signed By Windy Lemus, OTR/L, CLT OT OP Ortho Eval Details Complexity Complexity Low Insurance Information Insurance Information Workman's [employer] Other Insurance [place] [facility] History/Precautions Current Condition/Medical Diagnosis Referring Provider Uma Keith PA-C Medical Diagnoses M65.949 Unspecified Synovitis and tenosynovitis (R: dominant hand ring finger) Treatment Diagnosis Localized swelling, R60.0 R hand (ring finger) stiffness , M25.641 R hand (ring finger pain, M79. 641 Date of Onset 07/09/24 with surgery on 07/18 Other Precautions Patient came off all restrictions on 08/14/24, He is back at work but physically unable to lift and carry like he normally would be doing. His lump room supervisor is giving him other duties until his R ( dominant) hand regains motion and strength. 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 DOS: 07/18/24; Dr. Nolasco. Patient works for [employer], was on the job 07/09/24 and got punctured by a screw in the palmar side PIP joint of the 4th finger. He says it did not go in very far and it was removed. He was seen in the ED on 07/18/24 for x-ray, was started on a course of oral Bactrim DS 1 tab p.o. b.i.d.. However, the hand continued to worsen. Patient underwent surgery on 07/19/[address] Que Nolasco. Sales Assistant is present for today's OT EVAL as patient is [place] speaking (patient's spouse is also present). Patient last saw Ortho on for second wound check. He is reporting right hand ring finger stiffness, pain and swelling which prompted the OT referral. He is unable to fully extend this finger and struggles to make a full contact fist due to stiffness. AROM of the R (dominant) hand ring finger is greatly limited. Denies wound related concerns, such as: fever, chills, drainage, erythema, tenderness. [place] side of the Ring Finger: wound is completely closed with no drainage. Pain Assessment Pain Pain Yes Pain Comments 6-7/10 with activity/movement Range of Motion and Strength Hand/Finger/Thumb Range of Motion and Strength Hand/Finger/Thumb Range of Motion and Right Hand- ring finger exam: Strength Wound appears healthy, clean, dry and intact. No drainage, erythema, tenderness nor excessive warmth. Wound has healed nicely. Palpable scar tissue present. Dry, flaking epidermis layer around periwound in some areas . Moderate diffuse swelling within this digit. Unable to actively fully extend the DIP joint due to stiffness. Nontender along the flexor tendon. Unable to make a full contact fist. CMS intact with 2+ radial pulse. [place], warm digits with brisk capillary refill. Sensation confirmed distally. R (dominant) hand ring finger greatly lacking in motion DIP 0-30 degrees PIP 10-35 degrees MCP 0-55 Hand Pinch/Product Development Ecologist Strength Hand Pinch/Product Development Ecologist Strength Hand Pinch/Product Development Ecologist Strength Left Hand,Right Hand Left Hand Product Development Ecologist Strength Position 1 in Elbow 105 Flexion (lbs) Product Development Ecologist Strength Position 2 in Elbow 105 Extension (lbs) Lateral Pinch Strength (lbs) 25 Three Point Pinch (lbs) 24 Tip Pinch Strength (lbs) 14 Right Hand Product Development Ecologist Strength Position 1 in Elbow 25 Flexion (lbs) Product Development Ecologist Strength Position 2 in Elbow 30 Extension (lbs) Lateral Pinch Strength (lbs) 21 Three Point Pinch (lbs) 19 Tip Pinch Strength (lbs) 10 OT Problems Problems Problems Decreased Strength,Decreased Range of Motion,Decreased Dexterity,Pain,Decreased Coordination,Sensory Sensitivity,Lifting,Gripping, Pinching Other Problems Writing,Opening Containers, Dressing,Sleeping Patient Potential Excellent Assessment Assessment Assessment This 44 year old male is 5 weeks postoperative right ring finger open I&D of pyogenic flexor tenosynovitis and excisional debridement (skin subcutaneous tissue/deep fascia). DOS: 07/18/24; Dr. Nolasco. Patient works for [employer], was on the job 07/09/24 and got punctured by a screw in the palmar side PIP joint of the 4th finger. He says it did not go in very far and it was removed. He was seen in the ED on 07/18/24 for x-ray, was started on a course of oral Bactrim DS 1 tab p.o. b.i.d.. However, the hand continued to worsen. Patient underwent surgery on 07/19/[address] Que Nolasco. Sales Assistant is present for today's OT EVAL as patient is [place] speaking (patient's spouse is also present). Patient last saw Ortho on for second wound check. He is reporting right hand ring finger stiffness, pain and swelling which prompted the OT referral. He is unable to fully extend this finger and struggles to make a full contact fist due to stiffness. AROM of the R (dominant) hand ring finger is greatly limited. Denies wound related concerns, such as: fever, chills, drainage, erythema, tenderness. [place] side of the Ring Finger: wound is completely closed with no drainage. Patient was pleasant , alert, orientated, asked great questions in session, was an active listener to information presented and showed signs of motivation/ willingness to follow the presented protocol/ HEP. In session today, patient was provided with resources and education as well as given a customized HEP. Patient is anticipated to make great gains from attending skilled OT. Occupational Therapy Treatment Plan - OP Potential Rehabilitation Potential Excellent Set Goals Goals Set with Patient Yes Goals Goals 1. Pt will demonstrate pain- free cso and pinch strength comparable to the uninvolved side in order to improve functional grasp, hold, reach, and lifting ability needed to complete self-care, leisure tasks, and work activities. 2. Through active participation in skilled OT sessions, patient will maximize post-surgical wound healing to prevent infection, minimize functional/cosmetic sequelae of scarring. 3. 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 4. Patient will be able to make a full composite fist with the R dominant hand. Target Date 8 weeks Treatment Plan Treatment Plan Evaluation,Edema Control,Joint Mobilization,Manual Therapy, Ultrasound,Wound Care/Scar Management,Therapeutic Exercise,Therapeutic Activities,Self Care/Home Management,Education Expected Frequency 1-2x Week Expected Duration 8-10 Weeks Home Program Home Program Home Program Initiated Home Program Specifics Access Code: [email or web address] URL: [email or web address] Date: 08/25/2024 Prepared by: Windy Lemus Exercises - Hand Fist Pumps - 1 x daily - 7 x weekly - 3 sets - 10 reps - Hand PROM Finger Extension - 1 x daily - 7 x weekly - 3 sets - 10 reps - Seated Finger MP Extension AROM with Blocking - 1 x daily - 7 x weekly - 3 sets - 10 reps - Finger Spreading - 1 x daily - 7 x weekly - 3 sets - 10 reps - Finger Strengthening: Hook and Snow Plow in Putty - 1 x daily - 7 x weekly - 3 sets - 10 reps - Wrist Prayer Stretch at Table - 1 x daily - 7 x weekly - 3 sets - 10 reps Certification Certification Statement I Certify That: Therapy Services Provided, Therapy Plan Established, Therapy Plan Reviewed Certification Information Clinic ID # [id number] Initial Certification Date 08/25/24 Recertification Due Date 11/23/24 Provider Signature Required Yes Provider Signature Shows Agreement With POC & Medical Necessity Physician NPI Number Write NPI# Here Physician Comment/Change Comment or Changes Physician Signature & Date Requested Please Sign/Date Here
== END 2025-01-06 09:24 | disposition home or self-care (01) ==
PROVIDERS: Visit Provider Physician Assistant Surgical
DX: M65.949 Unspecified synovitis and tenosynovitis, unspecified hand (principal); R60.0 Localized edema; Z51.89 Encounter for other specified aftercare
CPT/HCPCS: 97110; 97140; 97165; T1013; X5282